=== PATIENT | female | born 1985 | race Caucasian/White ===

== ENCOUNTER 2022-03-04 08:07 | Outpatient (CLI) | payer OTHER, SELFPAY ==
[2022-03-04 12:30] LABS: Albumin* 4.3 g/dL (3.3-5.0); Chloride* 106 mmol/L (96-114); Potassium* 4.2 mmol/L (3.6-5.1); Sodium* 142 mmol/L (135-149)
[2022-03-04 12:32] LABS: Bilirubin Total* 1.1 mg/dL (0.1-1.5); Carbon Dioxide* 25 mmol/L (20-32); Creatinine* 0.8 mg/dL (0.5-1.5); Estimated Glomerular Filt Rate 97 ml/min
[2022-03-04 12:33] LABS: Alanine Aminotransferase* 27 U/L (4-35); Alkaline Phosphatase* 96 U/L (40-150); Aspartate Amino Transferase* 30 U/L (12-35); Blood Urea Nitrogen* 9 mg/dL (5-24); Glucose* 85 mg/dL (60-115)
[2022-03-04 13:35] LABS: Ferritin* 53.1 ng/mL (6.24-137.0)
[2022-03-04 13:49] LABS: Vitamin B12* 674 pg/mL (243-894)
== END 2022-03-04 08:08 | disposition home or self-care (01) ==
PROVIDERS: PCP Family Medicine; Visit Provider Family Medicine
DX: M79.604 Pain in right leg (principal); M79.605 Pain in left leg; R00.1 Bradycardia, unspecified; U07.1 COVID-19
CPT/HCPCS: 80053; 82607; 82728; 84443

== ENCOUNTER 2023-09-21 10:27 | Outpatient (CLI) | payer OTHER, SELFPAY | END 2023-09-21 10:28 | disposition home or self-care (01) | PROVIDERS: PCP Family Medicine; Visit Provider Family Medicine | DX: F41.9 Anxiety disorder, unspecified (principal); R00.2 Palpitations; M79.605 Pain in left leg; R07.89 Other chest pain | CPT/HCPCS: 80053; 84443 ==

== ENCOUNTER 2023-09-25 12:44 | Outpatient (CLI) | payer OTHER, SELFPAY | END 2023-09-25 12:45 | disposition home or self-care (01) | LOC: RAD 12:45 | PROVIDERS: PCP Family Medicine; Visit Provider Family Medicine | DX: R00.2 Palpitations (principal); I51.7 Cardiomegaly; Z87.74 Personal history of (corrected) congenital malformations of heart and circulatory system | CPT/HCPCS: 93306 ==

== ENCOUNTER 2023-10-10 10:35 | Outpatient (CLI) | payer OTHER, SELFPAY ==
--- OUTSIDE RECORDS SUMMARY | 2023-10-10 10:39 | XMS_ITS | Encounter Summary ---
Author Name Unknown Organization [facility] Address [address] [place] [address] Care Team Providers Care Singeing Torch Operator Name Role Phone Jaleel Christian MD Primary Care Provider [phone] Ricardo Ahn MD Unavailable Ruchi Blackman PA-C Unavailable [phone] Encounter Details Date Type Department Care Team (Late st Contact Info) Description 12/11/2019 Orders Only [facility] PH[facility] STANDARD [address] [place] [phone] Jose Manuel Strickland MD [address] [place] [address] Social History Tobacco Use Types Packs/Day Years Used Date Smoking Tobacco: Some Days Cigarettes Smokeless Tobacco: Never Alcohol Use Standard Drinks/Week Comments Not Currently 0 (1 standard drink = 0.6 oz pur e alcohol) Sex and Gender Information Value Date Recorded Sex Assigned at Not on file Gender Identity Not on file Sexual Orientation Not on file COVID-19 Exposure Response Date Recorded In the last month, have you been in contact with someone who was confirmed or suspected to have Coronavirus / COVID-19? No / Unsure 12/13/2019 5:20 AM CDT documented as of this encounter Plan of Treatment Not on file documented as of this encounter Visit Diagnoses Not on filedocumented in this encounter Care Teams Singeing Torch Operator Relationship Specialty Start Date End Date Jaleel Christian MD PCP - General Family Practice 10/21/19 Ricardo Ahn MD [address] [place] [address] Assigned Heart and Vascular Provider 04/17/20 09/04/21 Ruchi Blackman PA-C [address] [place] [address] Assigned Neuroscience Provider 09/09/20 09/19/20 documented as of this encounter
--- OUTSIDE RECORDS SUMMARY | 2023-10-10 10:39 | XMS_ITS | Encounter Summary ---
Author Name Unknown Organization [facility] Address [address] [place] [address]. [place] [address] Care Team Providers Care Cook Fry Name Role Phone Jaleel Christian MD Primary Care Provider [phone] Ricardo Ahn MD Unavailable [phone] Ruchi Blackman PA-C Unavailable [phone] Encounter Details Date Type Department Care Team (Late st Contact Info) Description 11/01/2019 [facility] [address] [place] [address] Lennie Lewis LPN Social History Tobacco Use Types Packs/Day Years Used Date Smoking Tobacco: Never Assessed Sex and Gender Information Value Date Recorded Sex Assigned at Not on file Gender Identity Not on file Sexual Orientation Not on file COVID-19 Exposure Response Date Recorded In the last month, have you been in contact with someone who was confirmed or suspected to have Coronavirus / COVID-19? No / Unsure 10/21/2019 1:21 PM CDT documented as of this encounter Plan of Treatment Not on file documented as of this encounter Visit Diagnoses Not on filedocumented in this encounter Care Teams Cook Fry Relationship Specialty Start Date End Date Jaleel Christian MD PCP - General Family Practice 10/21/19 Ricardo Ahn MD [address] [facility] [address] [place] [phone] Assigned Heart and Vascular Provider 04/17/20 09/04/21 Ruchi Blackman PA-C [address] [place] [address] Assigned Neuroscience Provider 09/09/20 09/19/20 documented as of this encounter
--- OUTSIDE RECORDS SUMMARY | 2023-10-10 10:39 | XMS_ITS | Encounter Summary ---
Author Name Unknown Organization [place] Address [address] [place] [address] Care Team Providers Care Bottom Loader Name Role Phone Jaleel Christian MD Primary Care Provider [phone] Ricardo Ahn MD Unavailable [phone] Ruchi Blackman PA-C Unavailable [phone] Encounter Details Date Type Department Care Team (Late st Contact Info) Description 03/11/[address] [facility] Medical Advice [facility] [id number] [place] [address] [address] [place] [address] Ricardo Ahn MD [address] [facility] [address] [place] [address] Social History Tobacco Use Types Packs/Day Years Used Date Smoking Tobacco: Some Days Cigarettes Smokeless Tobacco: Never Comments:a couple cigarettes daily Alcohol Use Standard Drinks/Week Comments Not Currently [...] have Coronavirus / COVID-19? No / Unsure 02/27/2020 1:34 PM CDT documented as of this encounter Plan of Treatment Not on file documented as of this encounter Visit Diagnoses Not on filedocumented in this encounter Care Teams Bottom Loader Relationship Specialty Start Date End Date Jaleel Christian MD PCP - General Family Practice 10/21/19 Ricardo Ahn MD [address] [place] [address] Assigned Heart and Vascular Provider 04/17/20 09/04/21 Ruchi Blackman PA-C [address] [place], [place] [address] Assigned Neuroscience Provider 09/09/20 09/19/20 documented as of this encounter
--- OUTSIDE RECORDS SUMMARY | 2023-10-10 10:39 | XMS_ITS | Clinical Summary ---
Author Name Unknown Organization [facility] Address [address] [place] [address] Care Team Providers Care Metal Grader Name Role Phone Jaleel Christian MD Primary Care Provider [phone] Allergies Active Allergy Reactions Criticality Noted Date Comments Ciprofloxacin Swelling High 12/02/2019 Sulfa Antibiotics Anaphylaxis High 10/18/2019 Medications Medication Sig Dispensed Refills Start Date End Date Status venlafaxine (EFFEXOR-XR) 75 MG 24 hr capsule Take 75 mg by mouth 2 times daily as needed (Patient taking differently than prescribed : RX states 75mg twice daily) Active LORazepam (ATIVAN) 0.5 MG tablet Take 0.5 mg by mouth daily as needed for anxiety Active methocarbamol (ROBAXIN) 750 MG tabletIndications:S /P patent foramen ovale closure Take 1 tablet (750 mg) by mouth 4 times daily as needed for muscle spasms 60 tablet 12/17/2019 Active Additional Information Patient not taking.Reported on 03/04/2020 oxyCODONE (ROXICODONE) 5 MG tabletIndications:S /P patent foramen ovale closure Take 1 tablet (5 mg) by mouth every 4 hours as needed for moderate to severe pain 50 tablet 12/17/2019 Active Additional Information Patient not taking.Reported on 03/04/2020 omeprazole (PRILOSEC) [address] capsule Take 20 mg by mouth daily Active Active Problems Problem Noted Date Diagnosed Date Fluid overload 12/17/2019 Anemia due to blood loss, acute 12/17/2019 S/P patent foramen ovale closure 12/13/2019 PFO (patent foramen ovale) 10/21/2019 Acute CVA (cerebrovascular accident) 10/18/2019 Pyelonephritis Depression Family History Medical History Relation Comments Coronary Artery Disease No family hx of Hyperlipidemia No family hx of Hypertension No family hx of Social History Tobacco Use Types Packs/Day Years Used Date Smoking Tobacco: Some Days Cigarettes Smokeless Tobacco: Never Comments:a couple cigarettes daily Alcohol Use Standard Drinks/Week Comments Not Currently 0 (1 standard drink = 0.6 oz pur e alcohol) Adolescent Education Answer Date Record ed Getting School Help Needed Not on file 03/18 Sex and Gender Information Value Date Recorded Sex Assigned at Not on file Gender Identity Not on file Sexual Orientation Not on file Last Filed Vital Signs Vital Sign Reading Time Taken Comments Blood Pressure 107/72 12/17/2019 11:13 AM CDT Pulse 92 12/17/2019 11:13 AM CDT Temperature 36.9 ??C (98.4 ??F) 12/17/2019 11:13 AM C DT Respiratory Rate 18 12/17/2019 11:13 AM CDT Oxygen Saturation 98% 12/17/2019 11:13 AM CDT Inhaled Oxygen Concentration - - Weight 70 kg (154 lb 5.2 oz) 12/17/2019 5:00 AM CDT Height 180.3 cm (5' 11) 11/20/2019 1:38 PM CDT Body Mass Index 21.52 11/20/2019 1:38 PM CDT Plan of Treatment Health Maintenance Due Date Last Done Comments ANNUAL REVIEW OF HM ORDERS 1984 YEARLY PREVENTIVE VISIT 1984 Pneumococcal Vaccine: Pediatrics (0 to 5 Years) and At-Risk Patients (6 to 64 Years) (1 of 2 - PCV) 02/05/1990 HIV SCREENING 02/05/1999 HEPATITIS C SCREENING 02/05/2002 DTAP/TDAP/TD IMMUNIZATION (1 - Tdap) 05/13/2017 05/12/2017 PAP 05/12/2020 05/12/2017, 05/12/2017 GLUCOSE 12/16/2022 12/17/2019, 11/25, 12/16/2019, Additional history exists COVID-19 Vaccine ( - 2022- season) 2023 INFLUENZA VACCINE (#1) 2023 9, 02/28/2016, 04/01/2011, Additional history exists PHQ-2 (once per calendar year) 2023 ADVANCE CARE PLANNING 12/12/2024 12/13/2019 HEPATITIS B IMMUNIZATION Completed 013, 09/12/2012, 08/15/2012 HPV IMMUNIZATION Aged Out No longer e ligible based on patient's age to complete this topic IPV IMMUNIZATION Aged Out No longer e ligible based on patient's age to complete this topic MENINGITIS IMMUNIZATION Aged Out No l onger eligible based on patient's age to complete this topic RSV MONOCLONAL ANTIBODY Aged Out No l onger eligible based on patient's age to complete this topic Procedures Procedure Name Priority Date/Time Associated Diagnosis Comments GLUCOSE BY METER Routine 12/17/2019 1:55 AM CDT PFO (patent foramen ovale) HCL PAP SMEAR Routine 11/18/1998 1:18 PM CDT Gynecologic Examination from Last 3 Months or Most Recently Relevant to Health Maintenance Results * Glucose by meter (12/17/2019 1:55 AM CDT) Glucose 88 70 - 99 mg/dL 12/17/2019 2:02 AM CDT POINT OF CARE TEST, GLUCOSE 12/17/2019 1:55 AM CDT 12/17/2019 2:02 AM CDT Jose Manuel Strickland MD [facility] POINT OF CARE TEST, GLUCOSE * PAP SMEAR (11/18/1998 1:18 PM CDT) Unlabelled DNR [facility] Biopsy Sent DNR [facility] Source VAG,CERV,E NDOCERV [facility] LMP POST [facility] PARA 3 [facility] 2 [facility] Clinical History DNR [facility] Therapy DNR [facility] Last Pap Diagnosis WITHIN NORMAL LIMITS [facility] PAP Date [id number] [facility] Specimen # DNR [facility] Tissue DNR [facility] Tissue Date DNR [facility] Statement of Adequacy [facility] Comment: SATISFACTORY FOR INTERPRETATION POST MENOPAUSAL PATIENT. ??NO ENDOCERVICAL CELLS SEEN. General Categorization DNR [facility] Descriptive Diagnosis [facility] Comment: WITHIN NORMAL LIMITS ATROPHIC CELL PATTERN Recommendations DNR [facility] DNR 114,,,,,, [facility] DNR DNR [facility] DNR DNR [facility] DNR DNR [facility] . [facility] Comment: ?PAP SMEARS ARE SUBJECT TO BOTH FALSE NEGATIVE AND FALSE ? POSITIVE RESULTS EVIDENCED BY DATA PUBLISHED IN THE ? MEDICAL LITERATURE. ??YOUR PATIENT'S RESULT SHOULD BE ? INTERPRETED IN THIS CONTEXT, TOGETHER WITH THE PATIENT'S ? HISTORY AND CLINICAL FINDINGS. TESTING LOCATION ? THIS TEST WAS PERFORMED AT [facility] ? [address] [facility]. [address] ? PHONE NUMBERS FOR CYTOLOGY INQUIRES, INCLUDING SLIDE REQUESTS ? EXT. [phone] ?? EXT. [phone] 11/16/1998 Lulvia Muniz MD LABORATORY Performing Organization Address City/State/[facility] Phone Number [facility] from Last 3 Months or Most Recently Relevant to Health Maintenance Advance Directives For more information, please contact: [phone] * Full Code (Latest Code Status on File) Date Activated Date Inactivated Comments 12/17/2019 10:31 AM Question Answer Comments Code status determined by: Discussion with patie nt/legal decision maker * Full Code Date Activated Date Inactivated Comments 12/13/2019 11:43 AM 12/17/2019 10:31 AM Question Answer Comments Code status determined by: Discussion with patie nt/legal decision maker * Full Code Date Activated Date Inactivated Comments 10/19/2019 2:50 PM 12/02/2019 9:27 AM Question Answer Comments Code status determined by: Discussion with patie nt/legal decision maker * Full Code Date Activated Date Inactivated Comments 10/18/2019 7:46 PM 10/19/2019 2:50 PM Question Answer Comments Code status determined by: Discussion with tai nt/legal decision maker Care Teams Metal Grader Relationship Specialty Start Date End Date Jaleel Christian MD PCP - General Family Practice 10/21/19
--- OUTSIDE RECORDS SUMMARY | 2023-10-10 10:39 | XMS_ITS | Encounter Summary ---
Author Name Unknown Organization [facility] Address [address] [place] [address]. [place] [address] Care Team Providers Care Residential Housekeeper Name Role Phone Jaleel Christian MD Primary Care Provider [phone] Ricardo Ahn MD Unavailable [phone] Ruchi Blackman PA-C Unavailable [phone] Encounter Details Date Type Department Care Team (Late st Contact Info) Description 02/18/2020 [facility] [address] [place] [address] Sarah Morrow APRN CNP NO INFO AVAILABLE 04/14/2022 Social History Tobacco Use Types Packs/Day Years Used Date Smoking Tobacco: Some Days Cigarettes Smokeless Tobacco: Never Alcohol Use Standard Drinks/Week Comments Not Currently 0 (1 standard drink = 0.6 oz pur e alcohol) Sex and Gender Information Value Date Recorded Sex Assigned at Not on file Gender Identity Not on file Sexual Orientation Not on file documented as of this encounter Plan of Treatment Not on file documented as of this encounter Visit Diagnoses Not on filedocumented in this encounter Care Teams Residential Housekeeper Relationship Specialty Start Date End Date Jaleel Christian MD PCP - General Family Practice 10/21/19 Ricardo Ahn MD [address] [facility] [address] [place] [phone] Assigned Heart and Vascular Provider 04/17/20 3 Ruchi Blackman PA-C [address] [place] [address] Assigned Neuroscience Provider 09/09/20 09/19/20 documented as of this encounter
--- OUTSIDE RECORDS SUMMARY | 2023-10-10 10:39 | XMS_ITS | Encounter Summary ---
Author Name Unknown Organization [facility] Address [address] [place] [address]. [place] [address] Care Team Providers Care Radar Mechanic Name Role Phone Jaleel Christian MD Primary Care Provider [phone] Ricardo Ahn MD Unavailable [phone] Ruchi Blackman PA-C Unavailable [phone] Encounter Details Date Type Department Care Team (Late st Contact Info) Description 11/14/2019 [facility] Medical Advice [facility] [address] [place] [address] Wesly Baez Social History Tobacco Use Types Packs/Day Years [...] have Coronavirus / COVID-19? No / Unsure 11/14/2019 12:02 PM CDT documented as of this encounter Plan of Treatment Not on file documented as of this encounter Visit Diagnoses Not on filedocumented in this encounter Care Teams Radar Mechanic Relationship Specialty Start Date End Date Jaleel Christian MD PCP - General Family Practice 10/21/19 Ricardo Ahn MD [address] [facility] [address] [place] [phone] Assigned Heart and Vascular Provider 04/17/20 09/04/21 Ruchi Blackman PA-C [address] [place] [address] Assigned Neuroscience Provider 09/09/20 09/19/20 documented as of this encounter
--- OUTSIDE RECORDS SUMMARY | 2023-10-10 10:39 | XMS_ITS | Encounter Summary ---
Author Name Unknown Organization [facility] Address [address] [place] [address] Care Team Providers Care Community Health Outreach Worker Name Role Phone Jaleel Christian MD Primary Care Provider [phone] Ricardo Ahn MD Unavailable Ruchi Blackman PA-C Unavailable [phone] Encounter Details Date Type Department Care Team (Late st Contact Info) Description 11/22/2019 Telephone [facility] Neurology [address] [facility] [address] [place] [address] Shine Vasquez MD [address] [place] [address] Social History Tobacco Use Types Packs/Day Years [...] have Coronavirus / COVID-19? No / Unsure 11/20/2019 1:36 PM CDT documented as of this encounter Miscellaneous Notes * Telephone Encounter - Mayra Ortez - 11/22/2019 9:24 AM CDT From: Ruchi Blackman PA-C Sent: 11/20/2019 ?? 5:31 PM CDT To: [facility] Subject: follow up needed ? Patient needs to follow up with us again in about 6 weeks. Thanks Genia documented in this encounter Plan of Treatment Not on file documented as of this encounter Visit Diagnoses Not on filedocumented in this encounter Care Teams Community Health Outreach Worker Relationship Specialty Start Date End Date Jaleel Christian MD PCP - General Family Practice 10/21/19 Ricardo Ahn MD [address] [place] [phone] Assigned Heart and Vascular Provider 04/17/20 09/04/21 Ruchi Blackman PA-C [address] [place], [place] [address] Assigned Neuroscience Provider 09/09/20 09/19/20 documented as of this encounter
--- OUTSIDE RECORDS SUMMARY | 2023-10-10 10:39 | XMS_ITS | Encounter Summary ---
Author Name Unknown Organization [facility] Address [address] [place] [address] Care Team Providers Care Case Loader Operator Name Role Phone Jaleel Christian MD Primary Care Provider [phone] Ricardo Ahn MD Unavailable Ruchi Blackman PA-C Unavailable Reason for Referral * Diagnostic Imaging XR (Routine) - Closed Specialty Diagnoses / Procedures Referred By Yovani t Referred To Contact Radiology. Diagnoses PFO (patent foramen ovale) Procedures XR Chest 2 Views Jose Manuel Strickland MD [address] [place] [address] [address]ray [address] [place] [address] Referral ID Status Reason Start Date Expiration Date Visits Re quested Visits Authorized [id number] Closed 12/10/2019 12/09/2020 1 1 Encounter Details Date Type Department Care Team (Late st Contact Info) Description 12/10/2019 Orders Only [facility] PHYS STANDARD [address] [place] [address] Jose Manuel Strickland MD [address] [place] [phone] PFO (patent foramen ovale) (Primary Dx) Social History Tobacco Use Types Packs/Day Years [...] on file documented as of this encounter Results * ABO/Rh type and screen (12/11/2019 1:03 PM CDT) Units Ordered 4 12/13/2019 5:50 AM CDT [facility] ABO A 12/11/2019 1:56 PM CDT [facility] RH(D) Neg [facility] Antibody Screen Neg 12/11/2019 1:56 PM CDT [facility] Test Valid Only At [facility] 12/11/2019 1:10 PM CDT [facility] Specimen Expires 12/14/2019 12/11/2019 1:10 PM CDT [facility] Crossmatch Red Blood Cells 12/13/2019 5:50 AM CDT [facility] Blood specimen (specimen) 12/11/2019 1:03 PM CDT 12/11/2019 1:04 PM CDT Jose Manuel Strickland MD LAB - BLOOD BA NK TEST ORDER [facility] [address] [place] [address], [facility] [phone] * A1C FUTURE anytime (12/11/2019 1:03 PM CDT) Hemoglobin A1C 5.2 0 - 5.6 % 12/11/2019 1:27 PM CDT [facility] Comment: Normal <5.7% Prediabetes 5.7-6.4% ??Diabetes 6.5% or higher - adopted from ADA consensus guidelines. Blood specimen (specimen) 12/11/2019 1:03 PM CDT 12/11/2019 1:04 PM CDT Jose Manuel Strickland MD LAB - BLOOD OR DERABLES Performing Organization Address City/[facility]/ZIP Co de Phone Number [facility] [address] [place] [address], [facility] [phone] * CBC with platelets FUTURE anytime (12/11/2019 1:03 PM CDT) WBC 6.9 4.0 - 11.0 10e9/L 12/11/2019 1:14 PM CDT [facility] RBC Count 4.63 3.8 - 5.2 10e12/L 12/11/2019 1:14 PM CDT [facility] Hemoglobin 14.3 11.7 - 15.7 g/dL 12/11/2019 1:14 PM CDT [facility] Hematocrit 42.1 35.0 - 47.0 % 12/11/2019 1:14 PM CDT [facility] MCV 91 78 - 100 fl 12/11/2019 1:14 PM CDT [facility] MCH 30.9 26.5 - 33.0 pg 12/11/2019 1:14 PM CDT [facility] MCHC 34.0 31.5 - 36.5 g/dL 12/11/2019 1:14 PM CDT [facility] RDW 12.7 10.0 - 15.0 % 12/11/2019 1:14 PM CDT [facility] Platelet Count 266 150 - 450 10e9/L 12/11/2019 1:14 PM CDT [facility] Blood specimen (specimen) 12/11/2019 1:03 PM CDT 12/11/2019 1:04 PM CDT Jose Manuel Strickland MD LAB - BLOOD OR DERABLES [facility] [address] [place] [address], [facility] [phone] * (ABNORMAL) Comprehensive metabolic panel FUTURE anytime (12/11/2019 1:03 PM CDT) Sodium 138 133 - 144 mmol/L 12/11/2019 1:22 PM [facility] Potassium 3.2(L) 3.4 - 5.3 mmol/L 12/11/2019 1:22 PM [facility] Chloride 109 94 - 109 mmol/L 12/11/2019 1:22 PM [facility] Carbon Dioxide 25 20 - 32 mmol/L 12/11/2019 1:31 PM [facility] Anion Gap 4 3 - 14 mmol/L 12/11/2019 1:31 PM [facility] Glucose 79 70 - 99 mg/dL 12/11/2019 1:31 PM [facility] Urea Nitrogen 10 7 - 30 mg/dL 12/11/2019 1:31 PM [facility] Creatinine 0.79 0.52 - 1.04 mg/dL 12/11/2019 1:31 PM [facility] GFR Estimate >90 >60 mL/min/{1. 73_m2} 12/11/2019 1:31 PM [facility] Comment: Non GFR Calc Starting 06/12/2018, serum creatinine based estimated GFR (eGFR) will be calculated using the Chronic Kidney Disease Epidemiology Collaboration (CKD-EPI) equation. GFR Estimate If Black >90 >60 mL/min/{1. 73_m2} 12/11/2019 1:31 PM [facility] Comment: GFR Calc Starting 06/12/2018, serum creatinine based estimated GFR (eGFR) will be calculated using the Chronic Kidney Disease Epidemiology Collaboration (CKD-EPI) equation. Calcium 8.7 8.5 - 10.1 mg/dL 12/11/2019 1:31 PM [facility] Bilirubin Total 0.4 0.2 - 1.3 mg/dL 12/11/2019 1:31 PM [facility] Albumin 3.9 3.4 - 5.0 g/dL 12/11/2019 1:31 PM CDT [facility] Protein Total 7.5 6.8 - 8.8 g/dL 12/11/2019 1:31 PM CDT [facility] Alkaline Phosphatase 80 40 - 150 U/L 12/11/2019 1:31 PM CDT [facility] ALT 22 0 - 50 U/L 12/11/2019 1:31 PM CDT [facility] AST 16 0 - 45 U/L 12/11/2019 1:31 PM CDT [facility] Blood specimen (specimen) 12/11/2019 1:03 PM CDT 12/11/2019 1:04 PM CDT Jose Manuel Strickland MD LAB - BLOOD OR DERABLES [facility] [address] [place] [address], [facility] [phone] * XR Chest 2 Views (12/11/2019 12:58 PM CDT) Anatomical Region Laterality Modality Chest Digital Radiogra phy Impressions 12/11/2019 2:06 PM CDT IMPRESSION: PA and lateral views of the chest. Lungs are clear. Heart is normal in size. No effusions are evident. No pneumothorax. JOSHUA CHRISTIANSON MD Narrative 12/11/2019 2:06 PM CDT CHEST TWO VIEWS December 11, 2019 12:58 PM HISTORY: PFO (patent foramen ovale). COMPARISON: None. Procedure Note Joshua Christianson MD - 12/11/2019 CHEST TWO VIEWS December 11, 2019 12:58 PM HISTORY: PFO (patent foramen ovale). COMPARISON: None. IMPRESSION: PA and lateral views of the chest. Lungs are clear. Heart is normal in size. No effusions are evident. No pneumothorax. JOSHUA CHRISTIANSON MD Jose Manuel Strickland MD IMG DIAGNOSTIC IMAGING ORDERABLES documented in this encounter Visit Diagnoses Diagnosis PFO (patent foramen ovale)- Primary Ostium secundum type atrial septal defect PFO (patent foramen ovale) Ostium secundum type atrial septal defect documented in this encounter Care Teams Case Loader Operator Relationship Specialty Start Date End Date Jaleel Christian MD PCP - General Family Practice 10/21/19 Ricardo Ahn MD [address] [facility] [address] [place] [address] Assigned Heart and Vascular Provider 04/17/20 09/04/21 Ruchi Blackman PA-C [address] [place] [address] Assigned Neuroscience Provider 09/09/20 09/19/20 documented as of this encounter
--- OUTSIDE RECORDS SUMMARY | 2023-10-10 10:39 | XMS_ITS | Referral Summary ---
Author Name Unknown Organization [facility] Address [address] [place] [address] Care Team Providers Care Door To Door Sales Representative Name Role Phone Jaleel Christian MD Primary Care Provider [phone] Allergies Active Allergy Reactions Criticality Noted Date [...] Acute CVA (cerebrovascular accident) 10/18/2019 Pyelonephritis Depression Social History Tobacco Use Types Packs/Day Years [...] 11/20/2019 1:38 PM CDT Plan of Treatment Not on file Procedures Procedure Name Priority Date/Time Associated Diagnosis [...] 2:02 AM CDT Jose Manuel Strickland MD LAB - [facility] [place] P OCT POINT OF CARE TEST, GLUCOSE * PAP SMEAR (11/18/1998 1:18 PM CDT) Unlabelled DNR [facility] Biopsy Sent DNR [facility] Source VAG,CERV,E NDOCERV [facility] LMP POST [facility] PARA 3 [facility] 2 [facility] Clinical History DNR [facility] Therapy DNR [facility] Last Pap Diagnosis WITHIN NORMAL LIMITS [facility] PAP Date [id number] [facility] Specimen # DNR [facility] Tissue DNR [facility] Tissue Date DNR [facility] Statement of Adequacy [facility] Comment: SATISFACTORY FOR INTERPRETATION POST MENOPAUSAL PATIENT. ??NO ENDOCERVICAL CELLS SEEN. General Categorization DNR [facility] Descriptive Diagnosis [facility] Comment: WITHIN NORMAL LIMITS ATROPHIC CELL PATTERN Recommendations DNR [facility] DNR 114,,,,,, [facility] DNR DNR [facility] DNR DNR [facility] DNR DNR [facility] . [facility] Comment: ?PAP SMEARS ARE SUBJECT TO BOTH FALSE NEGATIVE AND FALSE ? POSITIVE RESULTS EVIDENCED BY DATA PUBLISHED IN THE ? MEDICAL LITERATURE. ??YOUR PATIENT'S RESULT SHOULD BE ? INTERPRETED IN THIS CONTEXT, TOGETHER WITH THE PATIENT'S ? HISTORY AND CLINICAL FINDINGS. TESTING LOCATION ? THIS TEST WAS PERFORMED AT [facility] ? [address] [facility]. [id number] ? PHONE NUMBERS FOR CYTOLOGY INQUIRES, INCLUDING SLIDE REQUESTS ? EXT. 0137 ?? EXT. 1326 11/16/1998 Lluvia Muniz MD LABORATORY Performing Organization Address City/State/[facility] Co de Phone Number [facility] from Last 3 Months or Most Recently Relevant to Health Maintenance Advance Directives For more information, please contact: [phone] * Full Code (Latest Code Status on [...] by: Discussion with patie nt/legal decision maker Care Teams Door To Door Sales Representative Relationship Specialty Start Date End Date Jaleel Christian MD PCP - General Family Practice 10/21/19
--- OUTSIDE RECORDS SUMMARY | 2023-10-10 10:39 | XMS_ITS | Encounter Summary ---
Author Name Unknown Organization [facility] Address [address] [place] [address] Care Team Providers Care Commercial Floor Covering Installer Name Role Phone Jaleel Christian MD Primary Care Provider [phone] Ricardo Ahn MD Unavailable [phone] Ruchi Blackman PA-C Unavailable [phone] Encounter Details Date Type Department Care Team (Late st Contact Info) Description 12/10/2019 Orders Only [facility] [address] [place] [phone] Jose Manuel Strickland MD [address] [place] [address] Social History Tobacco Use Types Packs/Day Years [...] on filedocumented in this encounter Care Teams Commercial Floor Covering Installer Relationship Specialty Start Date End Date Jaleel Christian MD PCP - General Family Practice 10/21/19 Ricardo Ahn MD [address] [place] [address] Assigned Heart and Vascular Provider 04/17/20 09/04/21 Ruchi Blackman PA-C [address] [place] [address] Assigned Neuroscience Provider 09/09/20 09/19/20 documented as of this encounter
[2023-10-10 11:44] VITALS: BP 108/64; PULSE 93; RESP 16
--- NOTE | 2023-10-10 12:05 | W.PM.STED ---
Stress Test Note Date Date of test: 10/10/23 Providers Primary care provider: Jaleel Christian Stress test physician: Pawel Garcia Stress Test Note Stress test ordered: Exercise Stress Test Indication for test: Palpitations Stress test medicine: None Results discussion: Patient is a very nice lady presents for the above test after review of the cardiac stress test medical history, discussion with her over the risks benefits and side effects including non diagnosis she would like to proceed. Pretest EKG shows no acute ST wave changes, ventricular rate is 68, blood pressure 105/73. Standard Eric protocol is employed over a time course of 10 minutes, she achieved a metabolic with an 11.5 Mets with a maximum heart rate of 165, maximum blood pressure 124/178, no specific ST wave changes suggestive of ischemia, the computer did have a little bit a hard time picking her up, at certain times but on the tracing that can see there is no acute changes I do not see any evidence of any PACs or PACs also. Conditioning was felt to be excellent Impression: Negative electrographic tracing of stress test Follow up suggested: Patient will be discharged from this facility, she is doing well. No complaints are noted. Further testing is needed, suggestion of a stress echo.
== END 2023-10-10 10:36 | disposition home or self-care (01) ==
LOC: STRESS 10:35
PROVIDERS: PCP Family Medicine; Visit Provider Family Medicine
DX: R00.2 Palpitations (principal)
CPT/HCPCS: 93016; 93017

== ENCOUNTER 2024-01-23 10:14 | Outpatient (CLI) | payer OTHER, SELFPAY ==
--- OUTSIDE RECORDS SUMMARY | 2024-01-23 10:46 | XMS_ITS | Referral Summary ---
Author Organization [facility] Address [address] [place] [address] Care Team Providers Care Coal Handling Supervisor Name Role Phone Jaleel Christian MD Primary Care Provider [phone] Allergies Active Allergy Reactions Criticality Noted Date [...] CDT Plan of Treatment Not on file Advance Directives For more information, please contact: [phone] * Full Code (Latest Code Status on File) Date Activated Date Inactivated Comments 12/17/2019 10:31 AM Question Answer Comments Code status determined by: Discussion with tai nt/legal decision maker * Full Code Date [...] with patie nt/legal decision maker Care Teams Coal Handling Supervisor Relationship Specialty Start Date End Date Jaleel Christina MD PCP - General Family Practice 10/21/19
--- OUTSIDE RECORDS SUMMARY | 2024-01-23 10:46 | XMS_ITS | Encounter Summary ---
Author Organization [facility] Address [address] [place] [address] Care Team Providers Care Greens Or Grounds Superintendent Name Role Phone Jaleel Christian MD Primary Care Provider [phone] Ricardo Ahn MD Unavailable [phone] Ruchi Blackman PA-C Unavailable Reason for Referral * Diagnostic Imaging XR (Routine) - Closed Specialty Diagnoses / Procedures Referred By Yovani caba Referred To Contact Radiology. Diagnoses PFO (patent foramen ovale) Procedures XR Chest 2 Views Jose Manuel Strickland MD [address] [place] [address] Xray [address] [place] [id number] Referral ID Status Reason Start Date Expiration Date Visits Re quested Visits Authorized [id number] Closed 12/10/2019 12/09/2020 1 1 Encounter Details Date Type Department Care Team (Late st Contact Info) Description 12/10/2019 Orders Only [facility] PH[facility] [address] [place] [address] Jose Manuel Strickland MD [address] [place] [id number] PFO (patent foramen ovale) (Primary Dx) Social [...] Units Ordered 4 12/13/2019 5:50 AM CDT [facility] ABO A 12/11/2019 1:56 PM CDT [facility] RH(D) Neg [facility] Antibody Screen Neg 12/11/2019 1:56 PM CDT [facility] Test Valid Only At [facility] 12/11/2019 1:10 PM CDT [facility] Specimen Expires 12/14/2019 12/11/2019 1:10 PM CDT [facility] Crossmatch Red Blood Cells 12/13/2019 5:50 AM CDT [facility] Blood specimen (specimen) 12/11/2019 1:03 PM CDT 12/11/2019 1:04 PM CDT Jose Manuel Strickland MD LAB - BLOOD BA NK TEST ORDER [facility] [address] [place] [address], [facility] [phone] * A1C FUTURE anytime (12/11/2019 1:03 PM CDT) Hemoglobin A1C 5.2 0 - 5.6 % 12/11/2019 1:27 PM CDT [facility] Comment: Normal <5.7% Prediabetes 5.7-6.4% ??Diabetes 6.5% or higher - adopted from ADA consensus guidelines. Blood specimen (specimen) 12/11/2019 1:03 PM CDT 12/11/2019 1:04 PM CDT Jose Manuel Strickland MD LAB - BLOOD OR DERABLES [facility] [address] [place] [address], [facility] [phone] * CBC with platelets FUTURE anytime (12/11/2019 1:03 PM CDT) WBC 6.9 4.0 - 11.0 10e9/L 12/11/2019 1:14 PM CDT [facility] RBC Count 4.63 3.8 - 5.2 10e12/L 12/11/2019 1:14 PM CDT [facility] Hemoglobin 14.3 11.7 - 15.7 g/dL 12/11/2019 1:14 PM CDT [facility] Hematocrit 42.1 35.0 - 47.0 % 12/11/2019 1:14 PM CDT [facility] MCV 91 78 - 100 fl 12/11/2019 1:14 PM CDT [facility] MCH 30.9 26.5 - 33.0 pg 12/11/2019 1:14 PM CDT [facility] MCHC 34.0 31.5 - 36.5 g/dL 12/11/2019 1:14 PM CDT [facility] RDW 12.7 10.0 - 15.0 % 12/11/2019 1:14 PM CDT [facility] Platelet Count 266 150 - 450 10e9/L 12/11/2019 1:14 PM CDT [facility] Blood specimen (specimen) 12/11/2019 1:03 PM CDT 12/11/2019 1:04 PM CDT Jose Manuel Strickland MD LAB - BLOOD OR DERABLES [facility] [address] [address], [facility] [phone] * (ABNORMAL) Comprehensive metabolic panel FUTURE anytime (12/11/2019 1:03 PM CDT) Sodium 138 133 - 144 mmol/L 12/11/2019 1:22 PM [facility] Potassium 3.2(L) 3.4 - 5.3 mmol/L 12/11/2019 1:22 PM [facility] Chloride 109 94 - 109 mmol/L 12/11/2019 1:22 PM [facility] Carbon Dioxide 25 20 - 32 mmol/L 12/11/2019 1:31 PM [facility] Anion Gap 4 3 - 14 mmol/L 12/11/2019 1:31 PM [facility] Glucose 79 70 - 99 mg/dL 12/11/2019 1:31 PM [facility] Urea Nitrogen 10 7 - 30 mg/dL 12/11/2019 1:31 PM [facility] Creatinine 0.79 0.52 - 1.04 mg/dL 12/11/2019 1:31 PM [facility] GFR Estimate >90 >60 mL/min/{1. 73_m2} 12/11/2019 1:31 PM [facility] Comment: Non GFR Calc Starting 06/12/2018, serum creatinine based estimated GFR (eGFR) will be calculated using the Chronic Kidney Disease Epidemiology Collaboration (CKD-EPI) equation. GFR Estimate If Black >90 >60 mL/min/{1. 73_m2} 12/11/2019 1:31 PM [facility] Comment: GFR Calc Starting 06/12/2018, serum creatinine based estimated GFR (eGFR) will be calculated using the Chronic Kidney Disease Epidemiology Collaboration (CKD-EPI) equation. Calcium 8.7 8.5 - 10.1 mg/dL 12/11/2019 1:31 PM [facility] Bilirubin Total 0.4 0.2 - 1.3 mg/dL 12/11/2019 1:31 PM [facility] Albumin 3.9 3.4 - 5.0 g/dL 12/11/2019 1:31 PM CDT [facility] Protein Total 7.5 6.8 - 8.8 g/dL 12/11/2019 1:31 PM CDT [facility] Alkaline Phosphatase 80 40 - 150 U/L 12/11/2019 1:31 PM CDT [facility] ALT 22 0 - 50 U/L 12/11/2019 1:31 PM CDT [facility] AST 16 0 - 45 U/L 12/11/2019 1:31 PM CDT [facility] Blood specimen (specimen) 12/11/2019 1:03 PM CDT 12/11/2019 1:04 PM CDT Jose Manuel Strickland MD LAB - BLOOD OR DERABLES [facility] [address] [place] [address], [facility] [phone] * XR Chest 2 Views (12/11/2019 12:58 [...] defect documented in this encounter Care Teams Greens Or Grounds Superintendent Relationship Specialty Start Date End Date Jaleel Christian MD PCP - General Family Practice 10/21/19 Ricardo Ahn MD [address] [place] [address] Assigned Heart and Vascular Provider 04/17/20 09/04/21 Ruchi Blackman PA-C [address] [place] [address] Assigned Neuroscience Provider 09/09/20 09/19/20 documented as of this encounter
--- OUTSIDE RECORDS SUMMARY | 2024-01-23 10:46 | XMS_ITS | Clinical Summary ---
Author Organization [facility] Address [address] [place] [address] Care Team Providers Care Fugitive Detective Name Role Phone Jaleel Christian MD Primary Care Provider [phone] Allergies Active Allergy Reactions Criticality Noted Date [...] Advance Directives For more information, please contact: [phone] * Full Code (Latest Code Status on File) Date Activated Date Inactivated Comments 12/17/2019 10:31 AM Question Answer Comments Code status determined by: Discussion with tai clayton/legal decision maker * Full Code Date Activated [...] with patie nt/legal decision maker Care Teams Fugitive Detective Relationship Specialty Start Date End Date Jaleel Christian MD PCP - General Family Practice 10/21/19
--- OUTSIDE RECORDS SUMMARY | 2024-01-23 10:46 | XMS_ITS | Encounter Summary ---
Author Organization [facility] Address [address] [place] [address] Care Team Providers Care Baked Goods Stock Clerk Name Role Phone Jaleel Christian MD Primary Care Provider [phone] Ricardo Ahn MD Unavailable [phone] Ruchi Blackman PA-C Unavailable [phone] Encounter Details Date Type Department Care Team (Late st Contact Info) Description 12/10/2019 Orders Only [facility] PH[facility]ANDARD [address] [place] [phone] Jose Manuel Strickland MD [address] [place] [address] Social History Tobacco Use Types Packs/Day Years [...] on filedocumented in this encounter Care Teams Baked Goods Stock Clerk Relationship Specialty Start Date End Date Jaleel Christian MD PCP - General Family Practice 10/21/19 Ricardo Ahn MD [address] [place] [address] Assigned Heart and Vascular Provider 04/17/20 09/04/21 Ruchi Blackman PA-C [address] [place] [address] Assigned Neuroscience Provider 09/09/20 09/19/20 documented as of this encounter
--- OUTSIDE RECORDS SUMMARY | 2024-01-23 10:46 | XMS_ITS | Encounter Summary ---
Author Organization [facility] Address [address] [place] [address] Care Team Providers Care Film Projector Operator Name Role Phone Jaleel Christian MD Primary Care Provider [phone] Ricardo Ahn MD Unavailable [phone] Ruchi Blackman PA-C Unavailable [phone] Encounter Details Date Type Department Care Team (Late st Contact Info) Description 12/11/2019 Orders Only [facility] PH[facility]ANDARD [address] [place] [phone] Jose Manuel Strickland MD [address] [place] [address] Social History Tobacco Use Types Packs/Day Years [...] on filedocumented in this encounter Care Teams Film Projector Operator Relationship Specialty Start Date End Date Jaleel Christian MD PCP - General Family Practice 10/21/19 Ricardo Ahn MD [address] [place] [address] Assigned Heart and Vascular Provider 04/17/20 09/04/21 Ruchi Blackman PA-C [address] [place] [address] Assigned Neuroscience Provider 09/09/20 09/19/20 documented as of this encounter
--- OUTSIDE RECORDS SUMMARY | 2024-01-23 10:46 | XMS_ITS | Encounter Summary ---
Author Organization [facility] Address [address] [place] [address] Care Team Providers Care International Marketing Specialist Name Role Phone Jaleel Christian MD Primary Care Provider [phone] Ricardo Ahn MD Unavailable Ruchi Blackman PA-C Unavailable [phone] Encounter Details Date Type Department Care Team (Late st Contact Info) Description 02/18/2020 [facility] [address] [place] [address] Sarah Morrow APRN CNP NO [...] on filedocumented in this encounter Care Teams International Marketing Specialist Relationship Specialty Start Date End Date Jaleel Christian MD PCP - General Family Practice 10/21/19 Ricardo Ahn MD [address] [facility] [address] [place] [phone] Assigned Heart and Vascular Provider 04/17/20 3 Ruchi Blackman PA-C [address] [place] [address] Assigned Neuroscience Provider 09/09/20 09/19/20 documented as of this encounter
--- OUTSIDE RECORDS SUMMARY | 2024-01-23 10:46 | XMS_ITS | Encounter Summary ---
Author Organization [facility] Address [address] [address] Phone Care Team Providers Care Kindergarten Teacher Name Role Phone Jaleel Christian MD Primary Care Provider Unavail able Reason for Visit * Reason Comments [place] Removal Encounter Details Date Type Department Care Team (Late st Contact Info) Description 12/31/2023 10:24 AM CDT - 12/31/2023 10:45 AM CDT Emergency [facility] EMERGENCY DEPARTMENT [address] [place] [phone] Vanessa Gabriel MD [address] [place], [place] [phone] Fish hook in finger (Primary Dx) Discharge Disposition: Home and/or Self Care Social History Tobacco Use Types Packs/Day Years Used Date Smoking Tobacco: Never Assessed EH IP Custom IPV Answer Date Recorded Do you feel UNSAFE in any of your personal relationships with your family members or any other acquaintances? No 2023 Sex and Gender Information Value Date Recorded Sex Assigned at Not on file Gender Identity Not on file Sexual Orientation Not on file documented as of this encounter Last Filed Vital Signs Vital Sign Reading Time Taken Comments Blood Pressure 104/70 12/31/2023 10:21 AM CDT Pulse 60 12/31/2023 10:21 AM CDT Temperature 36.1 ??C (97 ??F) 12/31/2023 10:21 AM CDT Respiratory Rate 16 12/31/2023 10:21 AM CDT Oxygen Saturation 100% 12/31/2023 10:21 AM CDT Inhaled Oxygen Concentration - - Weight 68 kg (150 lb) 12/31/2023 10:21 AM CDT Height 177.8 cm (5' 10) 12/31/2023 10:21 AM CDT Body Mass Index 21.52 12/31/2023 10:21 AM CDT documented in this encounter Functional Status Functional Status Response Date of Assess ment Patient's Vision Adequate to Safely Complete Daily Activities Yes 12/31/2023 Patient's Memory Adequate to Safely Complete Daily Activities Yes 12/31/2023 Cognitive Status Response Date of Assessm ent Patient's Judgment Adequate to Safely Complete Daily Activities Yes 12/31/2023 documented as of this encounter Discharge Instructions * Attachments The following attachments cannot be sent through Care Everywhere. * [place] Removed (Gambian) documented in this encounter Medications at Time of Discharge Medication Sig Dispensed Refills Start Date End Date pregabalin (Lyrica) 100 MG capsule Take 100 mg by mouth three times a day. DULoxetine (Cymbalta) 30 MG delayed release capsule Take 30 mg by mouth one time a day. Do not crush. documented as of this encounter Discharge Disposition Disposition Code Departure Means Destination Comment s Home and/or Self Jail documented in this encounter ED Notes * Vanessa Gabriel MD - 12/31/2023 10:42 AM CDTAssociated Order(s): Foreign Body Removal Post-Procedure Diagnose(s): Fish hook in finger ED PROVIDER NOTE Name: Andrea Webster Date of : 1985 SUBJECTIVE: Chief Complaint: Chief Complaint Patient presents with [place] Removal History of Present Illness: Andrea Webster is a very pleasant 38 year old female who presents with a fish hook in her right middle finger. Was fishing on [employer] and accidentally herself with fishing lure. Tried to get it out herself but unsuccessful. No other injury She is right hand dominant. 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 Skin: Positive for wound. : MEDICAL, SOCIAL, FAMILY HISTORY: I reviewed with patient past medical history, social history, surgical history and family history as listed below. Active Ambulatory Problems Diagnosis Date Noted No Active Ambulatory Problems Resolved Ambulatory Problems Diagnosis Date Noted No Resolved Ambulatory Problems No Additional Past Medical History No past medical history on file. No past surgical history on file. Prior to Admission Medications Prescriptions Last Dose Informant Patient Reported? Taking? DULoxetine (Cymbalta) 30 MG delayed release capsule Yes Yes Sig: Take 30 mg by mouth one time a day. Do not crush. pregabalin (Lyrica) 100 MG capsule Yes Yes Sig: Take 100 mg by mouth three times a day. Facility-Administered Medications: None Allergies/Sensitivities: Allergies Allergen Reactions Ciprofloxacin Swelling Sulfa Drugs Unknown and Anaphylaxis Primary Care Provider: Jaleel Christian MD Code Status: No Order OBJECTIVE: Vital Signs: Blood pressure 104/70, pulse 60, temperature 97 ??F (36.1 ??C), temperature source Temporal, resp. rate 16, height 1.778 m (5' 10), weight 68 kg (150 lb), SpO2 100%. Physical Exam: Vital signs: Reviewed as above Constitutional: Well appearing. No acute distress. Head: Atraumatic Eyes: Pupils equal round and reactive to light. Conjunctiva pink Nose: no nasal drainage Mouth/throat: moist mucous membranes Neck: Supple Chest/cardiac: Normal rate Lungs: Non-labored Abdomen: Skin: there is a 3 hook fishing lure in right middle finger Mental status/neurologic:motor and sensation in tact distal to injury Data: All laboratory data, imaging, and EKGs were interpreted independently. Labs Reviewed - No data to display Imaging Results None Procedure: Foreign Body Removal Date/Time: 12/31/2023 10:50 AM Performed by: Vanessa Gabriel MD Authorized by: Vanessa Gabriel MD Consent: Consent obtained: Verbal Consent given by: Patient Risks discussed: Infection, pain and bleeding [place] protocol: Patient identity confirmed: Verbally with patient Location: Location: Finger Finger location: R middle finger Anesthesia: Anesthesia method: Local infiltration Local anesthetic: Lidocaine 1% w/o epi Procedure details: Removal mechanism: Hemostat Intact foreign body removal: yes Post-procedure details: Neurovascular status: intact Confirmation: No additional foreign bodies on visualization Skin closure: None Dressing: Antibiotic ointment and adhesive bandage Procedure completion: Tolerated well, no immediate complications ED COURSE, MEDICAL DECISION MAKING: Tetanus updated and fishook successfully removed. Patient tolerated procedure well. Return precautions including signs or symptoms of infection discussed. Final Clinical Impression: (S69.90XA) Fish hook in finger (primary encounter diagnosis) Vanessa Gabriel MD 12/31/23 10:42 AM Vanessa Gabriel MD 12/31/23 1052 * Faiza Davis RN - 12/31/2023 10:19 AM CDT Patient presents with complaints of fishhook in right hand ring finger by private car from Home accompanied by significant other. Patients symptoms include: [place] to right hand 1 hr prior to arrival documented in this encounter Plan of Treatment Not on file documented as of this encounter Procedures Procedure Name Priority Date/Time Associated Diagnosis Comments FOREIGN BODY REMOVAL - EMBEDDED 12/31/2023 10:50 AM CDT Fish hook in finger documented in this encounter Results * Foreign Body Removal (12/31/2023 10:50 AM CDT) Narrative Vanessa Gabriel MD - 12/31/2023 10:50 AM CDT Vanessa Gabriel MD ? 12/31/2023 10:52 AM Foreign Body Removal Date/Time: 12/31/2023 10:50 AM Performed by: Vanessa Gabriel MD Authorized by: Vanessa Gabriel MD ?? Consent: ??Consent obtained: ??Verbal ??Consent given by: ??Patient ??Risks discussed: ??Infection, pain and bleeding [place] protocol: ??Patient identity confirmed: ??Verbally with patient Location: ??Location: ??Finger ??Finger location: ??R middle finger Anesthesia: ??Anesthesia method: ??Local infiltration ??Local anesthetic: ??Lidocaine 1% w/o epi Procedure details: ??Removal mechanism: ??Hemostat ??Intact foreign body removal: yes ?? Post-procedure details: ??Neurovascular status: intact ?Confirmation: ??No additional foreign bodies on visualization ??Skin closure: ??None ??Dressing: ??Antibiotic ointment and adhesive bandage ??Procedure completion: ??Tolerated well, no immediate complications Vanessa Gabriel MD PROCEDURE/MINOR ASHISH ORDERABLES documented in this encounter Visit Diagnoses Diagnosis Fish hook in finger- Primary documented in this encounter Historical Medications * This list may reflect changes made after this encounter. Medication Sig Dispensed Refills Start Date End Date DULoxetine (Cymbalta) 30 MG delayed release capsule Take 30 mg by mouth one time a day. Do not crush. pregabalin (Lyrica) 100 MG capsule Take 100 mg by mouth three times a day. added in this encounter Care Teams Kindergarten Teacher Relationship Specialty Start Date End Date Jaleel Christian MD PCP - General Family Medicine 12/31/23 documented as of this encounter
--- OUTSIDE RECORDS SUMMARY | 2024-01-23 10:46 | XMS_ITS | Clinical Summary ---
Author Organization [facility] Address [address] [address] Phone Care Team Providers Care Restaurant Manager Name Role Phone Jaleel Christian MD Primary Care Provider Unavail able Allergies Active Allergy Reactions Criticality Noted Date Comments Ciprofloxacin Swelling High 12/02/2019 Sulfa Drugs Unknown,Anaphylaxis High 07/08/2009 Medications Medication Sig Dispensed Refills Start Date End Date Status pregabalin (Lyrica) 100 MG capsule Take 100 mg by mouth three times a day. Active DULoxetine (Cymbalta) 30 MG delayed release capsule Take 30 mg by mouth one time a day. Do not crush. Active Encounters Date Type Department Care Team Description 12/31/2023 10:24 AM CDT - 12/31/2023 10:45 AM CDT Emergency [facility] EMERGENCY DEPARTMENT [address] [place] [phone] Vanessa Gabriel MD Fish hook in finger (Primary Dx) Discharge Disposition: Home and/or Self Care 12/31/2023 Travel from Last 3 Months Immunizations Name Administration Dates Next Due Tdap (7 years and older) 12/31/2023 Social History Tobacco Use Types Packs/Day Years [...] Mass Index 21.52 12/31/2023 10:21 AM CDT Plan of Treatment Not on file Procedures Procedure Name Priority Date/Time Associated Diagnosis Comments FOREIGN BODY REMOVAL - EMBEDDED 12/31/2023 10:50 AM CDT Fish hook in finger from Last 3 Months Results * Foreign Body Removal (12/31/2023 10:50 AM CDT) Narrative Vanessa Gabriel MD - 12/31/2023 10:50 AM CDT Vanessa Gabriel MD ? 12/31/2023 10:52 AM Foreign Body Removal Date/Time: 12/31/2023 10:50 AM Performed by: Vanessa Gabriel MD Authorized by: Vanessa Gabriel MD ?? Consent: ??Consent obtained: ??Verbal ??Consent given by: ??Patient ??Risks discussed: ??Infection, pain and bleeding Leonore protocol: ??Patient identity confirmed: ??Verbally with patient [...] complications Vanessa Gabriel MD PROCEDURE/MINOR ASHISH ORDERABLES from Last 3 Months Care Teams Restaurant Manager Relationship Specialty Start Date End Date Jaleel Christian MD PCP - General Family Medicine 12/31/23
--- OUTSIDE RECORDS SUMMARY | 2024-01-23 10:46 | XMS_ITS | Encounter Summary ---
Author Organization [facility] Address [address] [place] [address] Care Team Providers Care Daycare Manager Name Role Phone Jaleel Christian MD Primary Care Provider [phone] Ricardo Ahn MD Unavailable [phone] Ruchi Blackman PA-C Unavailable [phone] Encounter Details Date Type Department Care Team (Late st Contact Info) Description 03/11/2020 [facility] [place] [facility] [address] [place] [address] [address] [place] [address] Ricardo Ahn MD [address] [facility] [address] [place] [address] Social History Tobacco Use Types [...] on filedocumented in this encounter Care Teams Daycare Manager Relationship Specialty Start Date End Date Jaleel Christian MD PCP - General Family Practice 10/21/19 Ricardo Ahn MD [address] [place] [phone] Assigned Heart and Vascular Provider 04/17/20 09/04/21 Ruchi Blackman PA-C [address] [place] [address] Assigned Neuroscience Provider 09/09/20 09/19/20 documented as of this encounter
--- OUTSIDE RECORDS SUMMARY | 2024-01-23 10:46 | XMS_ITS | Encounter Summary ---
Author Organization [facility] Address [address] [address] Phone Care Team Providers Care Auto Self Service Station Attendant Name Role Phone Jaleel Christian MD Primary Care Provider Unavail able Encounter Details Date Type Department Care Team (Latest Contact Info) Description 12/31/2023 Travel Social History Tobacco Use Types Packs/Day Years [...] on file documented as of this encounter Functional Status Functional Status Response Date of Assess ment Patient's Vision Adequate to Safely Complete Daily Activities Yes 12/31/2023 Patient's Memory Adequate to Safely Complete Daily Activities Yes 12/31/2023 Cognitive Status Response Date of Assessm ent Patient's Judgment Adequate to Safely Complete Daily Activities Yes 12/31/2023 documented as of this encounter Plan of Treatment Not on file documented as of this encounter Visit Diagnoses Not on filedocumented in this encounter Care Teams Auto Self Service Station Attendant Relationship Specialty Start Date End Date Jaleel Christian MD PCP - General Family Medicine 12/31/23 documented as of this encounter
--- OUTSIDE RECORDS SUMMARY | 2024-01-23 10:47 | XMS_ITS | Encounter Summary ---
Author Organization [facility] Address [address] [place] [address] Care Team Providers Care Loan Processing Supervisor Name Role Phone Jaleel Christian MD Primary Care Provider Ricardo Ahn MD Unavailable Ruchi Blackman PA-C Unavailable Encounter Details Date Type Department Care Team (Late st Contact Info) Description 11/22/2019 Telephone [facility] Neurology [address] [facility] 3rd [place] [address] Shine Vasquez MD [address] [place] [address] Social History Tobacco Use Types [...] on filedocumented in this encounter Care Teams Loan Processing Supervisor Relationship Specialty Start Date End Date Jaleel Christian MD PCP - General Family Practice 10/21/19 Ricardo Ahn MD [address] [place] [phone] Assigned Heart and Vascular Provider 04/17/20 09/04/21 Ruchi Blackman PA-C [address] [place], [place] [address] Assigned Neuroscience Provider 09/09/20 09/19/20 documented as of this encounter
--- OUTSIDE RECORDS SUMMARY | 2024-01-23 10:47 | XMS_ITS | Encounter Summary ---
Author Organization [facility] Address [address] [place] [address]. [place] [address] Care Team Providers Care Lapping Machine Operator Name Role Phone Jaleel Christian MD Primary Care Provider [phone] Ricardo Ahn MD Unavailable [phone] Ruchi Blackman PA-C Unavailable [phone] Encounter Details Date Type Department Care Team (Late st Contact Info) Description 11/01/2019 [facility] [address] [place] [address] Lennie Lewis LPN Social History Tobacco [...] on filedocumented in this encounter Care Teams Lapping Machine Operator Relationship Specialty Start Date End Date Jaleel Christian MD PCP - General Family Practice 10/21/19 Ricardo Ahn MD [address] [facility] [address] [place] [phone] Assigned Heart and Vascular Provider 04/17/20 3 Ruchi Blackman PA-C [address] [place] [address] Assigned Neuroscience Provider 09/09/20 09/19/20 documented as of this encounter
--- OUTSIDE RECORDS SUMMARY | 2024-01-23 10:47 | XMS_ITS | Encounter Summary ---
Author Organization [facility] Address [address] [place] [address]. [place] [address] Care Team Providers Care Refrigerated Company Driver Name Role Phone Jaleel Christian MD Primary Care Provider [phone] Ricardo Ahn MD Unavailable [phone] Ruchi Blackman PA-C Unavailable [phone] Encounter Details Date Type Department Care Team (Late st Contact Info) Description 11/14/2019 [facility] [address] [place] [address] Wesly Baez Social History Tobacco Use [...] on filedocumented in this encounter Care Teams Refrigerated Company Driver Relationship Specialty Start Date End Date Jaleel Christian MD PCP - General Family Practice 10/21/19 Ricardo Ahn MD [address] [facility] [address] [place] [phone] Assigned Heart and Vascular Provider 04/17/20 3 Ruchi Blackman PA-C [address] [place] [address] Assigned Neuroscience Provider 09/09/20 09/19/20 documented as of this encounter
== END 2024-01-23 10:15 | disposition home or self-care (01) ==
PROVIDERS: PCP Family Medicine; Visit Provider Family Medicine
DX: F41.8 Other specified anxiety disorders (principal); G25.81 Restless legs syndrome; M79.605 Pain in left leg; M79.604 Pain in right leg
CPT/HCPCS: 80048; 82728; 83540

== ENCOUNTER 2024-02-13 22:19 | Outpatient (REF) | payer OTHER, SELFPAY ==
--- OUTSIDE RECORDS SUMMARY | 2024-02-13 22:24 | XMS_ITS | Encounter Summary ---
Author Organization [facility] Address [address] [place] [address] Care Team Providers Care Marine Safety Officer Name Role Phone Jaleel Christian MD Primary Care Provider [phone] Ricardo Ahn MD Unavailable [phone] Ruchi Blackman PA-C Unavailable [phone] Encounter Details Date Type Department Care Team (Late st Contact Info) Description 02/18/2020 [facility] Medical Advice [facility] [address] [place] [address] Sarah Morrow APRN CNP NO [...] as of this encounter Plan of Treatment Upcoming Encounters Date Type Department Care Team (Late st Contact Info) Description 02/15/2024 4:00 PM CDT Virtual Visit [facility] [place] [address] [place] [phone] Remi Song MD [address] [place] [address] documented as of this encounter Visit Diagnoses Not on filedocumented in this encounter Care Teams Marine Safety Officer Relationship Specialty Start Date End Date Jaleel Christian MD PCP - General Family Practice 10/21/19 Ricardo Ahn MD [address] [place] [address] Assigned Heart and Vascular Provider 04/17/20 09/04/21 Ruchi Blackman PA-C [address] [place] [address] Assigned Neuroscience Provider 09/09/20 09/19/20 documented as of this encounter
--- OUTSIDE RECORDS SUMMARY | 2024-02-13 22:24 | XMS_ITS | Encounter Summary ---
Author Organization [facility] Address [address] [place] [address]. [place] [address] Care Team Providers Care Template Clerk Name Role Phone Jaleel Christian MD Primary Care Provider [phone] Ricardo Ahn MD Unavailable [phone] Ruchi Blackman PA-C Unavailable [phone] Encounter Details Date Type Department Care Team (Late Contact Info) Description 03/11/2020 [facility] Medical Advice [facility] [address] [place] [address] Ricardo Ahn MD [address] [facility] [address] [place] [address] Social History Tobacco Use Types [...] Encounters Date Type Department Care Team (Late Contact Info) Description 02/15/2024 4:00 PM CDT Virtual Visit [facility] [place] [address] [place] [phone] Remi Song MD [address] [place] [phone] documented as of this encounter Visit Diagnoses Not on filedocumented in this encounter Care Teams Template Clerk Relationship Specialty Start Date End Date Jaleel Christian MD PCP - General Family Practice 10/21/19 Ricardo Ahn MD [address] [place] [phone] Assigned Heart and Vascular Provider 04/17/20 09/04/21 Ruchi Blackman PAGunnarC [address] [place] [address] Assigned Neuroscience Provider 09/09/20 09/19/20 documented as of this encounter
--- OUTSIDE RECORDS SUMMARY | 2024-02-13 22:24 | XMS_ITS | Encounter Summary ---
Author Organization [facility] Address [address] [address] Phone Care Team Providers Care Mill Hand Plate Mill Name Role Phone Jaleel Christian MD Primary Care Provider Unavail able Reason for Visit * Reason Comments [place] Removal Encounter Details Date Type Department Care Team (Late st Contact Info) Description 12/31/2023 10:24 AM CDT - 12/31/2023 10:45 AM CDT Emergency [facility] EMERGENCY DEPARTMENT [address] [place] [phone] Vanessa Gabriel MD [address] [place], [place] [phone] Fish hook in finger (Primary Dx) Discharge [...] cannot be sent through Care Everywhere. * [place] Removed ([place] Sudanese) documented in this encounter Medications at Time [...] Means Destination Comment s Home and/or Self [facility] documented in this encounter ED Notes * Vanessa Gabriel MD - 12/31/2023 10:42 AM CDTAssociated Order(s): Foreign Body Removal Post-Procedure Diagnose(s): Fish hook in finger ED PROVIDER NOTE Name: Andrea Webster Date of : 1985 SUBJECTIVE: Chief Complaint: Chief Complaint Patient presents with [place] Removal History of Present Illness: Andrea Webster is a very pleasant 38 year old female who presents with a fish hook in her right middle finger. Was fishing on [employer] and accidentally herself with fishing lure. Tried to get it out herself but unsuccessful. No other injury She is right hand dominant. 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 Patients symptoms include: [place] to right hand 1 hr prior to [...] ??Patient ??Risks discussed: ??Infection, pain and bleeding [place] protocol: ??Patient identity confirmed: ??Verbally with patient [...] day. added in this encounter Care Teams Mill Hand Plate Mill Relationship Specialty Start Date End Date Jaleel Christian MD PCP - General Family Medicine 12/31/23 documented as of this encounter
--- OUTSIDE RECORDS SUMMARY | 2024-02-13 22:24 | XMS_ITS | Clinical Summary ---
Author Organization [facility] Address [address] [address] Phone Care Team Providers Care Industrial Sewer Name Role Phone aJleel Christian MD Primary Care Provider Unavail able [...] CDT - 12/31/2023 10:45 AM CDT Emergency [facility] EMERGENCY DEPARTMENT [address] [place] [phone] Vanessa Gabriel MD Fish hook in finger [...] ??Patient ??Risks discussed: ??Infection, pain and bleeding [place] protocol: ??Patient identity confirmed: ??Verbally with patient [...] ORDERABLES from Last 3 Months Care Teams Industrial Sewer Relationship Specialty Start Date End Date Jaleel Christian MD PCP - General Family Medicine 12/31/23
--- OUTSIDE RECORDS SUMMARY | 2024-02-13 22:24 | XMS_ITS | Encounter Summary ---
Author Organization [facility] Address [address] [place] [address]. [place] [address] Care Team Providers Care Operating Manager Name Role Phone Jaleel Christian MD Primary Care Provider Ricardo Ahn MD Unavailable [phone] Ruchi Blackman PA-C Unavailable [phone] Encounter Details Date Type Department Care Team (Late Contact Info) Description 12/11/2019 Orders Only [facility] STANDARD [address] [place] [address] Jose Manuel Strickland MD [address] [place] [address] Social History Tobacco Use Types Packs/Day Years [...] Description 02/15/2024 4:00 PM CDT Virtual Visit [facility] [place] [address] [place] [phone] Remi Song MD [address] [place] [address] documented as of this encounter Visit Diagnoses Not on filedocumented in this encounter Care Teams Operating Manager Relationship Specialty Start Date End Date Jaleel Christian MD PCP - General Family Practice 10/21/19 Ricardo Ahn MD [address] [place] [phone] Assigned Heart and Vascular Provider 04/17/20 09/04/21 Ruchi Blackman, PA-C [address] [place] [address] Assigned Neuroscience Provider 09/09/20 09/19/20 documented as of this encounter
--- OUTSIDE RECORDS SUMMARY | 2024-02-13 22:24 | XMS_ITS | Referral Summary ---
Author Organization [place] Address [address] [place] [address] Care Team Providers Care Supervisor Tower Name Role Phone Jaleel Christian MD Primary Care Provider [phone] Encounters Date Type Department Care Team Description 02/07/2024 Telephone [facility] [place] [address] [facility] [address] [place] [address] Nurse, [facility] Referral from Last 3 Months Allergies Active Allergy Reactions Criticality Noted Date [...] 11/20/2019 1:38 PM CDT Plan of Treatment Upcoming Encounters Date Type Department Care Team (Late st Contact Info) Description 02/15/2024 4:00 PM CDT Virtual Visit [facility] [place] [address] [place] [phone] Remi Song MD [address] [place] [id number] Procedures Procedure Name Priority Date/Time Associated Diagnosis Comments GLUCOSE BY METER Routine 12/17/2019 1:55 AM CDT PFO (patent foramen ovale) LIPID REFLEX TO DIRECT LDL PANEL Routine 10/19/2019 6:59 AM CDT Transient left leg weakness from Last 3 Months or Most Recently Relevant to Health Maintenance Results * Glucose by meter (12/17/2019 1:55 AM CDT) Glucose 88 70 - 99 mg/dL 12/17/2019 2:02 AM CDT POINT OF CARE TEST, GLUCOSE 12/17/2019 1:55 AM CDT 12/17/2019 2:02 AM CDT Jose Manuel Strickland MD LAB - BEAKER P OCT POINT OF CARE TEST, GLUCOSE * (ABNORMAL) Lipid panel reflex to direct LDL (10/19/2019 6:59 AM CDT) Cholesterol 121 <200 mg/dL 10/19/2019 7:39 AM CDT [facility] Triglycerides 47 <150 mg/dL 10/19/2019 7:39 AM CDT [facility] HDL Cholesterol 29(L) >49 mg/dL 0 7:42 AM CDT [facility] LDL Cholesterol Calculated 83 <100 mg/dL 10/19/2019 7:42 AM CDT [facility] Comment:Desirable: <100 mg/d l Non HDL Cholesterol 92 <130 mg/dL 10/19/2019 7:42 AM CDT [facility] Blood specimen (specimen) 10/19/2019 6:59 AM CDT 10/19/2019 7:00 AM CDT Dominguez Yuan MD LAB - BLOOD ORDERABL ES [facility] [address] [place] [address], [facility] [phone] from Last 3 Months or Most Recently Relevant to Health Maintenance Advance Directives For more information, please contact: [phone] * Full Code (Latest Code Status on [...] with patie nt/legal decision maker Care Teams Supervisor Tower Relationship Specialty Start Date End Date Jaleel Christian MD PCP - General Family Practice 10/21/19
--- OUTSIDE RECORDS SUMMARY | 2024-02-13 22:24 | XMS_ITS | Encounter Summary ---
Author Organization [place] Address [address] [place] [address] Care Team Providers Care Pot Pusher Name Role Phone Jaleel Christian MD Primary Care Provider [phone] Ricardo Ahn MD Unavailable Ruchi Blackman PA-C Unavailable [phone] Reason for Referral * Diagnostic Imaging XR (Routine) - Closed Specialty Diagnoses / Procedures Referred By Contjemal t Referred To Contact Radiology. Diagnoses PFO (patent foramen ovale) Procedures XR Chest 2 Views Jose Manuel Strickland MD [address] [place] [address] Xray [address] [place] [phone] Referral ID Status Reason Start Date Expiration Date Visits Re quested Visits Authorized [id number] Closed 12/10/2019 12/09/2020 1 1 Encounter Details Date Type Department Care Team (Late st Contact Info) Description 12/10/2019 Orders Only [facility] [address] [phone] Jose Manuel Strickland MD [address] [place] [id number] PFO (patent foramen ovale) (Primary Dx) Social [...] Description 02/15/2024 4:00 PM CDT Virtual Visit [facility] [place] [address] [place] [phone] Remi Song MD [address] [place] [address] documented as of this encounter Results * ABO/Rh type and screen (12/11/2019 1:03 PM CDT) Units Ordered 4 12/13/2019 5:50 AM CDT [facility] ABO A 12/11/2019 1:56 PM CDT [facility] RH(D) Neg [facility] Antibody Screen Neg 12/11/2019 1:56 PM CDT [facility] Test Valid Only At [facility] 12/11/2019 1:10 PM CDT [facility] Specimen Expires 12/14/2019 12/11/2019 1:10 PM CDT [facility] Crossmatch Red Blood Cells 12/13/2019 5:50 AM CDT [facility] Blood specimen (specimen) 12/11/2019 1:03 PM CDT 12/11/2019 1:04 PM CDT Jose Manuel Strickland MD LAB - BLOOD BA NK TEST ORDER [facility] [address] [address], [facility] [phone] * A1C FUTURE anytime (12/11/2019 1:03 PM CDT) Hemoglobin A1C 5.2 0 - 5.6 % 12/11/2019 1:27 PM CDT [facility] Comment: Normal <5.7% Prediabetes 5.7-6.4% ??Diabetes 6.5% or higher - adopted from ADA consensus guidelines. Blood specimen (specimen) 12/11/2019 1:03 PM CDT 12/11/2019 1:04 PM CDT Jose Manuel Strickland MD LAB - BLOOD OR DERABLES Performing Organization Address [facility] Co de Phone Number [facility] [address] [address], [facility] [phone] * CBC with platelets FUTURE anytime (12/11/2019 1:03 PM CDT) WBC 6.9 4.0 - 11.0 10e9/L 12/11/2019 1:14 PM CDT [facility] RBC Count 4.63 3.8 - 5.2 10e12/L 12/11/2019 1:14 PM CDT [facility] Hemoglobin 14.3 11.7 - 15.7 g/dL 12/11/2019 1:14 PM CDT [facility] Hematocrit 42.1 35.0 - 47.0 % 12/11/2019 1:14 PM CDT [facility] MCV 91 78 - 100 fl 12/11/2019 1:14 PM CDT [facility] MCH 30.9 26.5 - 33.0 pg 12/11/2019 1:14 PM CDT [facility] MCHC 34.0 31.5 - 36.5 g/dL 12/11/2019 1:14 PM CDT [facility] RDW 12.7 10.0 - 15.0 % 12/11/2019 1:14 PM CDT [facility] Platelet Count 266 150 - 450 10e9/L 12/11/2019 1:14 PM T [facility] Blood specimen (specimen) 12/11/2019 1:03 PM CDT 12/11/2019 1:04 PM CDT Jose Manuel Strickland MD LAB - BLOOD OR DERABLES [facility] [address] [place] [address], [facility] [phone] * (ABNORMAL) Comprehensive metabolic panel FUTURE anytime (12/11/2019 1:03 PM CDT) Sodium 138 133 - 144 mmol/L 12/11/2019 1:22 PM [facility] Potassium 3.2(L) 3.4 - 5.3 mmol/L 12/11/2019 1:22 PM [facility] Chloride 109 94 - 109 mmol/L 12/11/2019 1:22 PM [facility] Carbon Dioxide 25 20 - 32 mmol/L 12/11/2019 1:31 PM [facility] Anion Gap 4 3 - 14 mmol/L 12/11/2019 1:31 PM [facility] Glucose 79 70 - 99 mg/dL 12/11/2019 1:31 PM [facility] Urea Nitrogen 10 7 - 30 mg/dL 12/11/2019 1:31 PM [facility] Creatinine 0.79 0.52 - 1.04 mg/dL 12/11/2019 1:31 PM [facility] GFR Estimate >90 >60 mL/min/{1. 73_m2} 12/11/2019 1:31 PM [facility] Comment: Non GFR Calc Starting 06/12/2018, serum creatinine based estimated GFR (eGFR) will be calculated using the Chronic Kidney Disease Epidemiology Collaboration (CKD-EPI) equation. GFR Estimate If Black >90 >60 mL/min/{1. 73_m2} 12/11/2019 1:31 PM CDT [facility] Comment: GFR Calc Starting 06/12/2018, serum creatinine based estimated GFR (eGFR) will be calculated using the Chronic Kidney Disease Epidemiology Collaboration (CKD-EPI) equation. Calcium 8.7 8.5 - 10.1 mg/dL 12/11/2019 1:31 PM CDT [facility] Bilirubin Total 0.4 0.2 - 1.3 mg/dL 12/11/2019 1:31 PM CDT [facility] Albumin 3.9 3.4 - 5.0 g/dL 12/11/2019 1:31 PM CDT [facility] Protein Total 7.5 6.8 - 8.8 g/dL 12/11/2019 1:31 PM CDT [facility] Alkaline Phosphatase 80 40 - 150 U/L 12/11/2019 1:31 PM CDT [facility] ALT 22 0 - 50 U/L 12/11/2019 1:31 PM CDT [facility] AST 16 0 - 45 U/L 12/11/2019 1:31 PM CDT [facility] Blood specimen (specimen) 12/11/2019 1:03 PM CDT 12/11/2019 1:04 PM CDT Jose Manuel Strickland MD LAB - BLOOD OR DERABLES [facility] [address] [place] [address], [facility] [phone] * XR Chest 2 Views (12/11/2019 12:58 [...] defect documented in this encounter Care Teams Pot Pusher Relationship Specialty Start Date End Date Jaleel Christian MD PCP - General Family Practice 10/21/19 Ricardo Ahn MD [address] [facility] [address] [place] [phone] Assigned Heart and Vascular Provider 04/17/20 09/04/21 Ruchi Blackman PA-C [address] [place] [address] Assigned Neuroscience Provider 09/09/20 09/19/20 documented as of this encounter
--- OUTSIDE RECORDS SUMMARY | 2024-02-13 22:24 | XMS_ITS | Encounter Summary ---
Author Organization [facility] Address [address] [place] [address]. [place] [address] Care Team Providers Care Utility Bag Assembler Name Role Phone Jaleel Christian MD Primary Care Provider [phone] Ricardo Ahn MD Unavailable [phone] Ruchi Blackman PA-C Unavailable [phone] Encounter Details Date Type Department Care Team (Late Contact Info) Description 12/10/2019 Orders Only [facility] [address] [place] [phone] Jose Manuel Strickland MD [address] [place] [address] Social History Tobacco Use Types Packs/Day Years [...] 02/15/2024 4:00 PM CDT Virtual Visit [facility] [place] [address] [place] [phone] Remi Song MD [address] [place] [phone] documented as of this encounter Visit Diagnoses Not on filedocumented in this encounter Care Teams Utility Bag Assembler Relationship Specialty Start Date End Date Jaleel Christian MD PCP - General Family Practice 10/21/19 Ricardo Ahn MD [address] [place] [phone] Assigned Heart and Vascular Provider 04/17/20 09/04/21 Ruchi Blackman, PA-C [address] [place] [id number] Assigned Neuroscience Provider 09/09/20 09/19/20 documented as of this encounter
--- OUTSIDE RECORDS SUMMARY | 2024-02-13 22:24 | XMS_ITS | Encounter Summary ---
Author Organization [facility] Address [address] [place] [address] Care Team Providers Care Administrative Support Clerk Name Role Phone Jaleel Christian MD Primary Care Provider [phone] Ricardo Ahn MD Unavailable [phone] Ruchi Blackman PA-C Unavailable [phone] Encounter Details Date Type Department Care Team (Late st Contact Info) Description 11/22/2019 Telephone [facility] [address] [facility] [address] [place] [address] Shine Vasquez MD [address] [place] [address] Social History Tobacco Use Types Packs/Day [...] documented in this encounter Plan of Treatment Upcoming Encounters Date Type Department Care Team (Late st Contact Info) Description 02/15/2024 4:00 PM CDT Virtual Visit [facility] [place] [address] [place] [phone] Remi Song MD [address] [place] [phone] documented as of this encounter Visit Diagnoses Not on filedocumented in this encounter Care Teams Administrative Support Clerk Relationship Specialty Start Date End Date Jaleel Christian MD PCP - General Family Practice 10/21/19 Ricardo Ahn MD [address] [place] [phone] Assigned Heart and Vascular Provider 04/17/20 09/04/21 Ruchi Blackman PA-C 9 [place] [address] Assigned Neuroscience Provider 09/09/20 09/19/20 documented as of this encounter
--- OUTSIDE RECORDS SUMMARY | 2024-02-13 22:24 | XMS_ITS | Encounter Summary ---
Author Organization [facility] Address [address] [place] [address]. [place] [address] Care Team Providers Care Spring Intern Name Role Phone Jaleel Christian MD Primary Care Provider [phone] Reason for Visit * Reason Onset Date Comments Referral 02/07/2024 Encounter Details Date Type Department Care Team (Late st Contact Info) Description 02/07/2024 Telephone [facility] [place] [phone] [facility] [address] [address] Nurse, [facility] Referral Social History Tobacco Use Types Packs/Day Years [...] on file documented as of this encounter Miscellaneous Notes * Telephone Encounter - Rhoda Devries - 02/09/2024 11:23 AM CDT Spoke with patient and scheduled video visit. * Telephone Encounter - Mehreen Elliott - 02/07/2024 10:49 AM CDT Left voicemail for patient to call back to schedule appointment(s), provided telephone number for patient to call back to schedule. NEW VASCULAR PATIENT VIDEO consult with Dr. Song (video consult ok per scheduling guidelines for this diagnosis/referral) Please schedule this at next available Appt note: Ref by Heidi Casarez PA-C ([facility]) for muscle biopsy. * Telephone Encounter - Linda Herrera RN - 02/07/2024 10:04 AM CDT Referral received via Fax on 02/06/24. Pt referred to [facility] by Heidi Casarez PA-C ([facility]) for muscle biopsy. Routing to scheduling to coordinate the following: NEW VASCULAR PATIENT VIDEO consult with Dr. Song (video consult ok per scheduling guidelines for this diagnosis/referral) Please schedule this at next available Appt note: Ref by Heidi Casarez PA-C ([facility]) for muscle biopsy. MANAN JordanN, RN, -[facility] [place] documented in this encounter Plan of Treatment Upcoming Encounters Date Type Department Care Team (Late st Contact Info) Description 02/15/2024 4:00 PM CDT Virtual Visit [facility] [place] [address] [place] [phone] Remi Song MD [address] [place] [address] documented as of this encounter Visit Diagnoses Not on filedocumented in this encounter Care Teams Spring Intern Relationship Specialty Start Date End Date Jaleel Christian MD PCP - General Family Practice 10/21/19 documented as of this encounter
--- OUTSIDE RECORDS SUMMARY | 2024-02-13 22:24 | XMS_ITS | Clinical Summary ---
Author Organization [facility] Address [address] [place] [address] Care Team Providers Care Structural Metal Fabricator Apprentice Name Role Phone Jaleel Christian MD Primary Care Provider [phone] Allergies Active Allergy Reactions Criticality Noted Date [...] Acute CVA (cerebrovascular accident) 10/18/2019 Pyelonephritis Depression Encounters Date Type Department Care Team Description 02/07/2024 Telephone [facility] [place] [address] [place] [phone] Nurse, [facility] Referral from Last 3 Months Family History Medical History Relation Comments Coronary [...] Center Vascular [facility] [place] [address] [place] [phone] Remi Song MD [address] [place] [address] Health Maintenance Due Date Last Done Comments ANNUAL REVIEW OF HM ORDERS 1984 MAMMO SCREENING 1984 YEARLY PREVENTIVE VISIT 1984 HIV SCREENING 02/05/1999 HEPATITIS C SCREENING 02/05/2002 PAP 05/12/2020 05/12/2017, 05/12/2017 GLUCOSE 12/16/2022 12/17/2019, 11/25, 12/16/2019, Additional history exists COVID-19 Vaccine (3 - 2022- season) 2023 06/23/2021, 05/28/2021 PHQ-2 (once per calendar year) 2023 INFLUENZA VACCINE (#1) 2024 9, 02/28/2016, 04/01/2011, Additional history exists LIPID 10/18/2024 10/19/2019 ADVANCE CARE PLANNING 12/12/2024 12/13/2019 DTAP/TDAP/TD IMMUNIZATION (5 - Td or Tdap) 12/30/2033 12/31/2023, 05/12/2017, 08/21/2007, Additional history exists HEPATITIS B IMMUNIZATION Completed 013, 09/12/2012, 08/15/2012 HPV IMMUNIZATION Aged Out No longer e ligible based on patient's age to complete this topic IPV IMMUNIZATION Aged Out No longer e ligible based on patient's age to complete this topic MENINGITIS IMMUNIZATION Aged Out No l onger eligible based on patient's age to complete this topic Pneumococcal Vaccine: Pediatrics (0 to 5 Years) and At-Risk Patients (6 to 64 Years) Aged Out No longer eligible based on patient's age to complete [...] 121 <200 mg/dL 10/19/2019 7:39 AM CDT [facility] Triglycerides 47 <150 mg/dL 10/19/2019 7:39 AM CDT [facility] HDL Cholesterol 29(L) >49 mg/dL 0 7:42 AM CDT [facility] LDL Cholesterol Calculated 83 <100 mg/dL 10/19/2019 7:42 AM CDT [facility] Comment:Desirable: <100 mg/d l Non HDL Cholesterol 92 <130 mg/dL 10/19/2019 7:42 AM T [facility] Blood specimen (specimen) 10/19/2019 6:59 AM CDT 10/19/2019 7:00 AM CDT Dominguez Yuan MD LAB - BLOOD ORDERABL ES [facility] [address] [place] [address], [facility] [phone] from Last 3 Months or Most Recently Relevant to Health Maintenance Advance Directives For more information, please contact: [phone] * Full Code (Latest Code Status on [...] with patie nt/legal decision maker Care Teams Structural Metal Fabricator Apprentice Relationship Specialty Start Date End Date Jaleel Christian MD PCP - General Family Practice 10/21/19
--- OUTSIDE RECORDS SUMMARY | 2024-02-13 22:24 | XMS_ITS | Encounter Summary ---
Author Organization [facility] Address [address] [place] [address]. [place] [address] Care Team Providers Care Soils Engineer Name Role Phone Jaleel Christian MD Primary Care Provider [phone] Ricardo Ahn MD Unavailable [phone] Ruchi Blackman PA-C Unavailable [phone] Encounter Details Date Type Department Care Team (Late st Contact Info) Description 11/01/2019 MyC Medical Advice [facility] [address] [place] [address] Lennie Lewis LPN Social History Tobacco [...] Description 02/15/2024 4:00 PM CDT Virtual Visit [facility] [place] [address] [place] [phone] Remi Song MD [address] [place] [address] documented as of this encounter Visit Diagnoses Not on filedocumented in this encounter Care Teams Soils Engineer Relationship Specialty Start Date End Date Jaleel Christian MD PCP - General Family Practice 10/21/19 Ricardo Ahn MD [address] [place] [address] Assigned Heart and Vascular Provider 04/17/20 09/04/21 Ruchi Blackman PA-C 9 [place] [address] Assigned Neuroscience Provider 09/09/20 09/19/20 documented as of this encounter
--- OUTSIDE RECORDS SUMMARY | 2024-02-13 22:24 | XMS_ITS | Encounter Summary ---
Author Organization [facility] Address [address] [address] Phone Care Team Providers Care Stunt Performer Name Role Phone Jaleel Christian MD Primary [...] on filedocumented in this encounter Care Teams Stunt Performer Relationship Specialty Start Date End Date Jaleel Christian MD PCP - General Family Medicine 12/31/23 documented as of this encounter
--- OUTSIDE RECORDS SUMMARY | 2024-02-13 22:24 | XMS_ITS | Encounter Summary ---
Author Organization [facility] Address [address] [place] [address]. [place] [address] Care Team Providers Care Drawbridge Tender Name Role Phone Jaleel Christian MD Primary Care Provider [phone] Ricardo Ahn MD Unavailable [phone] Ruchi Blackman PA-C Unavailable [phone] Encounter Details Date Type Department Care Team (Late st Contact Info) Description 11/14/2019 MyC Medical Advice [facility] [place] [address] [facility] [address] [place] [phone] Wesly Baez Social History Tobacco Use Types [...] Description 02/15/2024 4:00 PM CDT Virtual Visit [facility] [place] [address] [place] [phone] Remi Song MD [address] [place] [address] documented as of this encounter Visit Diagnoses Not on filedocumented in this encounter Care Teams Drawbridge Tender Relationship Specialty Start Date End Date Jaleel Christian MD PCP - General Family Practice 10/21/19 Ricardo Ahn MD [address] [place] [address] Assigned Heart and Vascular Provider 04/17/20 09/04/21 Ruchi Blackman PA-C 9 [place] [address] Assigned Neuroscience Provider 09/09/20 09/19/20 documented as of this encounter
[2024-02-13 22:49] LABS: Sodium* 138 mmol/L (135-149)
[2024-02-13 23:02] LABS: C Reactive Protein* < 0.5 mg/dL (0.5-1.0)
[2024-02-13 23:23] LABS: Erythrocyte SedimentationRate* 2 mm/hr (2-20)
[2024-02-17 01:28] LABS: Anti-Nuclear Ab(ANA)IgG ELISA None Detected (None Detected)
== END 2024-02-13 22:20 | disposition home or self-care (01) ==
LOC: NPINS 22:19
PROVIDERS: PCP Family Medicine; Visit Provider Physician Assistant
DX: M79.604 Pain in right leg (principal); M79.605 Pain in left leg; Z79.899 Other long term (current) drug therapy
CPT/HCPCS: 84295; 85651; 86039; 86140

== ENCOUNTER 2024-03-04 13:05 | Outpatient (CLI) | payer OTHER, SELFPAY ==
--- OUTSIDE RECORDS SUMMARY | 2024-03-04 13:07 | XMS_ITS | Clinical Summary ---
Author Organization [facility] Address [address] [address] Phone Care Team Providers Care Nursing Home Admissions Director Name Role Phone Jaleel Christian MD Primary [...] CDT - 12/31/2023 10:45 AM CDT Emergency [facility] [address] [place] [phone] Vanessa Gabriel MD Fish hook in finger [...] ??Patient ??Risks discussed: ??Infection, pain and bleeding [place] protocol: ??Patient identity confirmed: ??Verbally with patient [...] ORDERABLES from Last 3 Months Care Teams Nursing Home Admissions Director Relationship Specialty Start Date End Date Jaleel Christian MD PCP - General Family Medicine 12/31/23
--- OUTSIDE RECORDS SUMMARY | 2024-03-04 13:08 | XMS_ITS | Encounter Summary ---
Author Organization [facility] Address [address] [place] [address]. [place] [address] Care Team Providers Care Call Center Coordinator Name Role Phone Jaleel Christian MD Primary Care Provider [phone] Encounter Details Date Type Department Care Team (Late st Contact Info) Description 02/26/2024 Telephone [facility] [place] [address] [place] [phone] Remi Song MD [address] [place], [place] [id number] Social History Tobacco Use Types Packs/Day Years Used Date Smoking Tobacco: Some Days Cigarettes Smokeless Tobacco: Never Comments:a couple cigarettes daily Alcohol Use Standard Drinks/Week Comments Not Currently 0 (1 standard drink = 0.6 oz pur e alcohol) Adolescent Education Answer Date Record ed Getting School Help Needed Not on file 03/18 Interpersonal Safety Answer Date Record ed Do you feel physically and e motionally safe where you currently live? Yes 02/27/2024 Within the past 12 months, h ave you been hit, slapped, kicked or otherwise physically hurt by someone? No 02/27/2024 Within the past 12 months, h ave you been humiliated or emotionally abused in other ways by your partner or ex-partner? No 02/27/2024 Sex and Gender Information Value Date Recorded Sex Assigned at Not on file Gender Identity Not on file Sexual Orientation Not on file documented as of this encounter Miscellaneous Notes * Telephone Encounter - Remi Song MD - 02/26/2024 9:[address] [facility] Andrea MARIELLE Webster who had a phone consultation with me about neuropathic pain. Originally the consult came through for a muscle biopsy. We were able to talk to neurology and clarified that they do want a nerve biopsy. Thus, we plan to perform a sural nerve biopsy with the patient in a prone position tomorrow morning. I was unable to reach patient and left a message on cell phone. No laboratory tests are required preoperatively. Remi Song MD documented in this encounter Plan of Treatment Not on file documented as of this encounter Goals Goal Patient Goal Type Associated Problems Recent Progress Patient-Stated? Author MYC ECC SURG ENROLL Care Plan MyC ECC SURG ENROLL No Tatiana Mcginnis Care pathway for general surgery Care Plan Care pathway for general surgery No Audra Lira MYC ECC SURG DAY 10 MED Care Plan Care pathway for general surgery No Audra Lira MYC ECC GENERAL SURGERY Care Plan General Surgery Health Exam Escalation No Audra Lira MYC ECC SURG HEALTH NOT YES - 5 Care Plan MYC ECC SURG HEALTH NOT YES -5 No Audra Lira documented as of this encounter Visit Diagnoses Not on filedocumented in this encounter Additional Health Concerns Active Problems Noted Date Diagnosed Date MyC ECC SURG ENROLL 02/20/2024 Care pathway for general surgery 02/20/2024 General Surgery Health Exam Escalation MYC ECC SURG HEALTH NOT YES -5 02/20/2024 documented as of this encounter Care Teams Call Center Coordinator Relationship Specialty Start Date End Date Jaleel Christian MD PCP - General Family Practice 10/21/19 documented as of this encounter
--- OUTSIDE RECORDS SUMMARY | 2024-03-04 13:08 | XMS_ITS | Encounter Summary ---
Author Organization [facility] Address [address] [place] [address] Care Team Providers Care Foam Dispenser Name Role Phone Jaleel Christian MD Primary Care Provider Encounter Details Date Type Department Care Team (Late st Contact Info) Description 02/19/2024 MyC Medical Advice [facility] [address] [phone] iLnda Herrera, RN Social History Tobacco Use Types Packs/Day Years [...] on filedocumented in this encounter Care Teams Foam Dispenser Relationship Specialty Start Date End Date Jaleel Christian MD PCP - General Family Practice 10/21/19 documented as of this encounter
--- OUTSIDE RECORDS SUMMARY | 2024-03-04 13:08 | XMS_ITS | Encounter Summary ---
Author Organization [facility] Address [address] [place] [address]. [place] [address] Care Team Providers Care Assembler Cards And Announcements Name Role Phone Jaleel Christian MD Primary Care Provider [phone] Encounter Details Date Type Department Care Team (Late st Contact Info) Description 02/16/2024 Medical Correspondence [facility] [address] [place] [phone] Scan, Non-Provider Social History Tobacco Use Types Packs/Day Years [...] on filedocumented in this encounter Care Teams Assembler Cards And Announcements Relationship Specialty Start Date End Date Jaleel Christian MD PCP - General Family Practice 10/21/19 documented as of this encounter
--- OUTSIDE RECORDS SUMMARY | 2024-03-04 13:08 | XMS_ITS | Encounter Summary ---
Author Organization [facility] Address [address] [place] [address]. [place] [address] Care Team Providers Care Army Helicopter Pilot Name Role Phone Jaleel Christian MD Primary Care Provider [phone] Encounter Details Date Type Department Care Team (Late st Contact Info) Description 03/04/[address] [facility] [place] [address] [place] [phone] Remi Song MD [address] [place], [place] [phone] Social History Tobacco Use Types Packs/Day Years Used Date Smoking Tobacco: Every Day Cigarettes Smokeless Tobacco: Never Comments:a couple cigarettes [...] Telephone Encounter - Remi Song MD - 03/04/2024 12:21 PM CDT [facility] I called Andrea Webster after her left sural nerve biopsy last week. I left a message on her cell phone this afternoon. Pathology is still pending from [facility]. She will follow-up with [facility], [facility]. I told her to call if there is any concerns. Remi Song MD documented in this encounter [...] documented as of this encounter Care Teams Army Helicopter Pilot Relationship Specialty Start Date End Date Jaleel Christian MD PCP - General Family Practice 10/21/19 documented as of this encounter
--- OUTSIDE RECORDS SUMMARY | 2024-03-04 13:08 | XMS_ITS | Referral Summary ---
Author Organization [facility] Address [address] [place] [address] Care Team Providers Care Engineering Production Liaison Name Role Phone Jaleel Christian MD Primary Care Provider [phone] Encounters Date Type Department Care Team Description 03/04/2024 Telephone [facility] [place] [address] [place] [phone] Remi Song MD 02/27/2024 Travel 02/27/2024 7:30 AM CDT - 02/27/2024 8:40 AM CDT Surgery [facility] [address] [place] [phone] Remi Song MD LEFT SURAL NERVE BIOPSY 02/27/2024 7:20 AM CDT Anesthesia Event [facility] [address] [place] [phone] Florentino Hardy MD Dennen, Kristina Nguyen, APRN CODE AND TEST CLERK 02/27/2024 5:36 AM CDT - 02/27/2024 9:25 AM CDT Hospital Encounter [facility] PreOP/Phase II [address] [place] [phone] Remi Song MD Neuropathy (Primary Dx) Discharge Disposition: Home or Self Care 02/26/2024 Telephone [facility] [address] [place] [phone] Remi Song MD 02/19/2024 Telephone [facility] [address] [place] [phone] Remi Song MD Surgery Scheduling 02/19/2024 MyC Medical Advice [facility] [address] [place] [phone] Linda Herrera RN 02/16/2024 Medical [facility] [address] [place] [phone] Scan, Non-Provider 02/15/2024 4:00 PM CDT Virtual Visit [facility] [address] [place] [phone] Remi Song MD Myositis of left thigh, unspecified myositis type (Primary Dx); Peripheral polyneuropathy 02/07/2024 Telephone [facility] [address] [place] [phone] Nurse, [facility] Referral 02/05/2024 Medical Correspondence [facility] [address] [place] [phone] Scan, Non-Provider from Last 3 Months Allergies Active Allergy Reactions Criticality Noted Date Comments Buspirone 01/23/2024 Ciprofloxacin Swelling High 12/02/2019 Sulfa Antibiotics Anaphylaxis High 10/18/2019 Medications Medication Sig Dispensed Refills Start Date End Date Status DULoxetine (CYMBALTA) 30 MG capsule Take 30 mg by mouth daily. Active pregabalin (LYRICA) 75 MG capsule Active cholecalciferol (VITAMIN D3) 125 mcg (5000 units) capsule Active OXcarbazepine (TRILEPTAL) 150 MG tablet 02/08/2024 Active aspirin (ASA) 325 MG EC tablet Take 325 mg by mouth daily. Active albuterol (PROAIR HFA/PROVENTIL HFA/VENTOLIN HFA) 108 (90 Base) MCG/ACT inhaler Inhale 2 puffs into the lungs every 6 hours as needed for shortness of breath, wheezing or cough. Active naproxen sodium 220 MG capsule Take 220 mg by mouth 2 times daily as needed (pain). Active ibuprofen (ADVIL/MOTRIN) 600 MG tabletIndicatio ns:Neuropathy Take 1 tablet (600 mg) by mouth every 6 hours as needed for moderate pain. 02/27/2024 Active venlafaxine (EFFEXOR-XR) 75 MG 24 hr capsule Take 75 mg by mouth 2 times daily as needed (Patient taking differently than prescribed : RX states 75mg twice daily) 02/15/20 24 Discontinued LORazepam (ATIVAN) 0.5 MG tablet Take 0.5 mg by mouth daily as needed for anxiety 02/15/20 24 Discontinued methocarbamol (ROBAXIN) 750 MG tabletIndicatio ns:S/P patent foramen ovale closure Take 1 tablet (750 mg) by mouth 4 times daily as needed for muscle spasms 60 tablet 12/17/2019 02/15/20 24 Discontinued oxyCODONE (ROXICODONE) 5 MG tabletIndicatio ns:S/P patent foramen ovale closure Take 1 tablet (5 mg) by mouth every 4 hours as needed for moderate to severe pain 50 tablet 12/17/2019 02/15/20 24 Discontinued omeprazole (PRILOSEC) [address] capsule Take 20 mg by mouth daily 02/15/20 24 Discontinued clonazePAM (KLONOPIN) 0.5 MG tablet 02/27/20 24 Discontinued(Med Rec(No AVS / No eCancel)) Active Problems Problem Noted Date Diagnosed Date Fluid overload 12/17/2019 Anemia due to blood loss, acute 12/17/2019 S/P patent foramen ovale closure 12/13/2019 PFO (patent foramen ovale) 10/21/2019 Acute CVA (cerebrovascular accident) 10/18/2019 Pyelonephritis Depression Social History Tobacco Use Types Packs/Day Years Used Date Smoking Tobacco: Every Day Cigarettes Smokeless Tobacco: Never Tobacco Cessation:Ready to Q uit: Not Asked; Counseling Given: Not Answered Comments:a couple cigarettes daily Alcohol Use Standard [...] Sign Reading Time Taken Comments Blood Pressure 103/71 02/27/2024 9:10 AM CDT Pulse 61 02/27/2024 9:10 AM CDT Temperature 36.1 ??C (97 ??F) 02/27/2024 9:10 AM CDT Respiratory Rate 18 02/27/2024 9:10 AM CDT Oxygen Saturation 100% 02/27/2024 9:10 AM CDT Inhaled Oxygen Concentration - - Weight 75.8 kg (167 lb 3.2 oz) 02/27/2024 6:05 A M CDT Height 180.3 cm (5' 11) 02/27/2024 6:05 AM CDT Body Mass Index 23.32 02/27/2024 6:05 AM CDT Plan of Treatment Not on file Goals Goal Patient Goal Type Associated Problems [...] HEALTH NOT YES -5 No Audra Lira Procedures Procedure Name Priority Date/Time Associated Diagnosis Comments BIOPSY, MUSCLE 02/27/2024 7:25 AM CDT Peripheral polyneuropathy Special Needs -asa: hold 5 days prior HCG QUALITATIVE URINE STAT 02/27/2024 6:05 AM CDT GLUCOSE BY METER Routine 12/17/2019 1:55 AM CDT PFO (patent foramen ovale) LIPID REFLEX TO DIRECT LDL PANEL Routine 10/19/2019 6:59 AM CDT Transient left leg weakness from Last 3 Months or Most Recently Relevant to Health Maintenance Results * HCG qualitative urine - Pre-Op (02/27/2024 6:05 AM CDT) hCG Urine Qualitative Negative Negative AURA 02/27/2024 6:14 AM CDT LABORATORY Comment:This test is for scr eening purposes. Results should be interpreted along with the clinical picture. Confirmation testing is available if warranted by ordering USB250, HCG Quantitative . Urine MID-STREAM URINE SPECIMEN / Unknown Non-blood Collection / Unknown 02/27/2024 6:05 AM CDT 02/27/2024 6:07 AM CDT Florentino Hardy MD LAB - URINE ORDER [facility] [address] floor, [address] [place] [address], [facility] [phone] * Glucose by meter (12/17/2019 1:55 AM CDT) Glucose 88 70 - 99 mg/dL 12/17/2019 2:02 AM CDT POINT OF CARE TEST, GLUCOSE 12/17/2019 1:55 AM CDT 12/17/2019 2:02 AM CDT Jose Manuel Strickland MD LAB - [facility] POINT OF CARE TEST, GLUCOSE * (ABNORMAL) Lipid panel reflex to direct LDL (10/19/2019 6:59 AM CDT) Cholesterol 121 <200 mg/dL 10/19/2019 7:39 AM CDT [facility] Triglycerides 47 <150 mg/dL 10/19/2019 7:39 AM CDT [facility] HDL Cholesterol 29(L) >49 mg/dL 0 7:42 AM T [facility] LDL Cholesterol Calculated 83 <100 mg/dL 10/19/2019 7:42 AM T [facility] Comment:Desirable: <100 mg/d l Non HDL Cholesterol 92 <130 mg/dL 10/19/2019 7:42 AM T [facility] Blood specimen (specimen) 10/19/2019 6:59 AM CDT 10/19/2019 7:00 AM CDT Dominguez Yuan MD LAB - BLOOD ORDERABL ES [facility] [address] [place], [place] [address] [phone] from Last 3 Months or Most Recently Relevant to Health Maintenance Additional Health Concerns Active Problems Noted Date Diagnosed Date MyC ECC SURG ENROLL 02/20/2024 Care pathway for general surgery 02/20/2024 General Surgery Health Exam Escalation 4 MYC ECC SURG HEALTH NOT YES -5 02/20/2024 Advance Directives For more information, please contact: [phone] * Full Code (Latest Code Status on File) Date Activated Date Inactivated Comments 12/17/2019 10:31 AM 02/27/2024 5:36 AM Question Answer Comments Code status determined [...] with patie nt/legal decision maker Care Teams Engineering Production Liaison Relationship Specialty Start Date End Date Jaleel Christian MD PCP - General Family Practice 10/21/19
--- OUTSIDE RECORDS SUMMARY | 2024-03-04 13:08 | XMS_ITS | Encounter Summary ---
Author Organization [facility] Address [address] [address] Phone Care Team Providers Care Presser Cotton Ginning Name Role Phone Jaleel Christian MD Primary Care Provider Unavail able Reason for Visit * Reason Comments [place] Removal Encounter Details Date Type Department Care Team (Late st Contact Info) Description 12/31/2023 10:24 AM CDT - 12/31/2023 10:45 AM CDT Emergency [facility] [address] [place] [phone] Vanessa Gabriel MD [address] [place], [place] [phone] Fish hook in finger (Primary Dx) Discharge [...] cannot be sent through Care Everywhere. * [place] Removed (Danish) documented in this encounter Medications at Time [...] Means Destination Comment s Home and/or Self Usp documented in this encounter ED Notes * Vanessa Gabriel MD - 12/31/2023 10:42 AM CDTAssociated Order(s): Foreign Body Removal Post-Procedure Diagnose(s): Fish hook in finger ED PROVIDER NOTE Name: Andrea Webster Date of : 1985 SUBJECTIVE: Chief Complaint: Chief Complaint Patient presents with [place] Removal History of Present Illness: Andrea Webster is a very pleasant 38 year old female who presents with a fish hook in her right middle finger. [place] and accidentally herself with fishing lure. Tried to get it out herself but unsuccessful. No other injury She is right hand dominant. 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 Patients symptoms include: [place] to right hand 1 hr prior to [...] ??Patient ??Risks discussed: ??Infection, pain and bleeding [place] protocol: ??Patient identity confirmed: ??Verbally with patient [...] day. added in this encounter Care Teams Presser Cotton Ginning Relationship Specialty Start Date End Date Jaleel Christian MD PCP - General Family Medicine 12/31/23 documented as of this encounter
--- OUTSIDE RECORDS SUMMARY | 2024-03-04 13:08 | XMS_ITS | Encounter Summary ---
Author Organization [facility] Address [address] [place] [address] Care Team Providers Care Electrical Logging Engineer Name Role Phone Jaleel Christian MD Primary Care Provider Reason for Visit * Auth/Cert Specialty Diagnoses / Procedures Referred By Yovani t Referred To Contact Surgery Diagnoses Peripheral polyneuropathy Peripheral polyneuropathy [G62.9] Procedures AL BIOPSY MUSCLE, SUPERFICIAL AL BIOPSY MUSCLE, DEEP AL BIOPSY MUSCLE/SOFT TISSUE, PERCUTANEOUS NEEDLE AL LIGATION OR BIOPSY TEMPORAL ARTERY LEFT SURAL NERVE BIOPSY Periop Services [address] [place] [address] Referral ID Status Reason Start Date Expiration Date Visits Re quested Visits Authorized [id number] 1 1 Encounter Details Date Type Department Care Team (Late st Contact Info) Description 02/27/2024 7:30 AM CDT - 02/27/2024 8:40 AM CDT Surgery [facility] PeriOP Services [address] [place] [address] Remi Song MD [address] [place] [address] LEFT SURAL NERVE BIOPSY Surgery Details Date/Time Status Location OR Service Patient Class Case Class Case Type Trauma Case? 02/27/24 7:30 AM Posted OR OR [facility] General Same Day Surgery Elective Panel 1 Procedure LRB Anes Op Region Wound Class Comments LEFT SURAL NERVE BIOPSY Left MAC Update I-Irasema n Surgeon Surgeon Role Service Panel Remi Song MD Primary General 1 Special Needs -asa: hold 5 days prior documented in this encounter Social History Tobacco Use Types Packs/Day Years [...] Sign Reading Time Taken Comments Blood Pressure 97/69 02/27/2024 8:30 AM CDT Pulse 63 02/27/2024 8:30 AM CDT Temperature 36.1 ??C (97 ??F) 02/27/2024 8:10 AM CDT Respiratory Rate 19 02/27/2024 8:30 AM CDT Oxygen Saturation 100% 02/27/2024 8:30 AM CDT Inhaled Oxygen Concentration - - Weight 75.8 kg (167 lb 3.2 oz) 02/27/2024 6:05 A M CDT Height 180.3 cm (5' 11) 02/27/2024 6:05 AM CDT Body Mass Index 23.32 02/27/2024 6:05 AM CDT documented in this encounter Discharge Instructions * Discharge Instructions* Marleni Olmos RN - 02/27/2024 8:08 AM CDT Remove dressing on lower left leg in 3-4 days. Reasons to contact your surgeon: Signs of possible infection: Check your incision daily for redness, swelling, warmth, red streaks or foul drainage. Elevated temperature. Pain not controlled with pain medication and/or rest. Uncontrolled nausea or vomiting. Any questions or concerns. Same Day Surgery Discharge Instructions for Sedation and General Anesthesia It's not unusual to feel dizzy, light-headed or faint for up to 24 hours after surgery or while taking pain medication. If you have these symptoms: sit for a few minutes before standing and have someone assist you when you get up to walk or use the bathroom. You should rest and relax for the next 24 hours. We recommend you make arrangements to have an adult stay with you for at least 24 hours after your discharge. Avoid hazardous and strenuous activity. DO NOT DRIVE any vehicle or operate mechanical equipment for 24 hours following the end of your surgery. Even though you may feel normal, your reactions may be affected by the medication you have received. Do not drink alcoholic beverages for 24 hours following surgery. Slowly progress to your regular diet as you feel able. It's not unusual to feel nauseated and/or vomit after receiving anesthesia. If you develop these symptoms, drink clear liquids (apple juice, sterling andrea, broth, 7-up, etc. ) until you feel better. If your nausea and vomiting persists for 24 hours, please notify your surgeon. All narcotic pain medications, along with inactivity and anesthesia, can cause constipation. Drinking plenty of liquids and increasing fiber intake will help. For any questions of a medical nature, call your surgeon. Do not make important decisions for 24 hours. If you had general anesthesia, you may have a sore throat for a couple of days related to the breathing tube used during surgery. You may use Cepacol lozenges to help with this discomfort. If it worsens or if you develop a fever, contact your surgeon. If you feel your pain is not well managed with the pain medications prescribed by your surgeon, please contact your surgeon's office to let them know so they can address your concerns. If you have questions or concerns about your procedure call Dr Remi Song at [phone] documented in this encounter Medications at Time of Discharge Medication Sig Dispensed Refills Start Date End Date albuterol (PROAIR HFA/PROVENTIL HFA/VENTOLIN HFA) 108 (90 Base) MCG/ACT inhaler Inhale 2 puffs into the lungs every 6 hours as needed for shortness of breath, wheezing or cough. aspirin (ASA) 325 MG EC tablet Take 325 mg by mouth daily. cholecalciferol (VITAMIN D3) 125 mcg (5000 units) capsule DULoxetine (CYMBALTA) 30 MG capsule Take 30 mg by mouth daily. ibuprofen (ADVIL/MOTRIN) 600 MG tabletIndications:Neurop athy Take 1 tablet (600 mg) by mouth every 6 hours as needed for moderate pain. 02/27/2024 naproxen sodium 220 MG capsule Take 220 mg by mouth 2 times daily as needed (pain). OXcarbazepine (TRILEPTAL) 150 MG tablet 02/08/2024 pregabalin (LYRICA) 75 MG capsule documented as of this encounter Nursing Notes * Marleni Olmos RN - 02/27/2024 9:10 AM CDT Discharge instructions reviewed with Gene, over the phone in presence of pt. All questions answered. No further concerns at this point. Teach back method used to ensure patient and family/friend understanding. OTC Ibuprofen ordered to be taken at home. IV removed. All belongings returned. Pt escorted out of hospital via wheelchair. Work note sent home with pt. * Marleni Olmos RN - 02/27/2024 8:45 AM CDT Pt dressed, up in recliner and transported to Phase 2. documented in this encounter Miscellaneous Notes * Op Note - Remi Song MD - 02/27/2024 7:40 AM CDT OPERATIVE NOTE PROCEDURE DATE: 02/27/2024 PRE-OP DIAGNOSIS: Progressive neuropathic leg pain POST-OP DIAGNOSES: Same PROCEDURE PERFORMED: Left excisional sural nerve biopsy SURGEON: Remi Song M.D. ANESTHESIA: Local with MAC PRE-OP MEDICATIONS: None INDICATIONS FOR PROCEDURE: 39-year-old patient in good health is noted progressive worsening left greater than right neuropathic pain in her legs. She has been evaluated at [facility] They have recommended a sural nerve biopsy. Risk benefits reviewed with the patient on vi mason visit the clinic and again today. Aware there may be permanent numbness in the distal sural nerve distribution following excisional biopsy. DESCRIPTION OF PROCEDURE: Brought the op room placed supine. Duplex ultrasound was used to ryan thelesser saphenous vein in the distal ankle. The left leg was prepped and draped. Timeout was called and the sites were identified. 1% lidocaine was injected to fill block fashion. A vertical incision was made over the distal anklewith a 15 blade scalpel. Electrocautery was used for hemostasis. We dissected down to a identified the lesser saphenous vein. Just medial to this there was the sural nerve. Clinically this was unremarkable. This was cautiously manipulated and with transection patient experienced no discomfort at all which is somewhat unusual. We removed a 3 cm segment. The proximal portion was marked with blue ink and this placed and sterile saline. Wound was anesthetized with 0.5% Marcaine. Subcutaneous tissue approximated interrupted 3-0 Vicryl and skin was closed with 3-0 Monocryl in a subcu fashion followed by Tegaderm dressing. On the back table the proximal portion of the nerve was transected and placed within the EM fixative. The other segment was placed on a sterile tongue blade with sterile saline and placed within a urine cup. Both of these were delivered to the pathology lab by myself for transfer to [facility] [place] [place] for further evaluation. Patient tolerated procedure well. EBL: Less than 1 mL COMPLICATIONS: None OPERATIVE FINDINGS: Clinically unremarkable nerve but no sensation with transection. Patient will follow-up in several weeks once the pathology is available with [facility] Remi Song MD documented in this encounter Plan of Treatment Pending Results Name Type Priority Associated Diagnoses Date /Time Nerve Biopsy (Reference Laboratory) Pathology and Cytology STAT 02/27/2024 7:51 AM CDT Scheduled Orders Name Type Priority Associated Diagnoses Orde r Schedule Nerve Biopsy (Reference Laboratory) Pathology and Cytology Routine Release Upon Orderin g for 1 Occurrences starting 02/27/2024 documented as of this encounter Procedures Procedure Name Priority Date/Time Associated Diagnosis Comments BIOPSY, MUSCLE 02/27/2024 7:25 AM CDT Peripheral polyneuropathy Special Needs -asa: hold 5 days prior HCG QUALITATIVE URINE STAT 02/27/2024 6:05 AM CDT documented in this encounter Results * HCG qualitative urine - Pre-Op (02/27/2024 6:05 AM CDT) hCG Urine Qualitative Negative Negative [facility] 02/27/2024 6:14 AM CDT LABORATORY Comment:This test is for scr eening purposes. Results should be interpreted along with the clinical picture. Confirmation testing is available if warranted by ordering [id number], HCG Quantitative . Urine MID-STREAM URINE SPECIMEN / Unknown Non-blood Collection / Unknown 02/27/2024 6:05 AM CDT 02/27/2024 6:07 AM CDT Florentino Hardy MD LAB - URINE ORDER [facility] [address] 1[address] floor, [address] [place] [address], [facility] [phone] documented in this encounter Visit Diagnoses Diagnosis Neuropathy- Primary Mononeuritis of unspecified site Peripheral polyneuropathy Unspecified hereditary and idiopathic peripheral neuropathy documented in this encounter Administered Medications Inactive Administered Medications - up to 3 most recent administrations Medication Order MAR Action Action Date Dose Rate Site BUPivacaine 0.25 % - EPINEPHrine 1:200,000 injection PRN, Starting on Mon02/27/24 at 0754, Intra-procedure $Given 02/27/2024 7:54 AM CDT 10 mLs Operative Site/Surgical Site lidocaine 1 % 20 mL, sodium bicarbonate 4 mL OR mixture PRN, Starting on Mon02/27/24 at 0740, Intra-procedure $Given 02/27/2024 7:40 AM CDT 9 mLs Operative Site/Surgical Site documented in this encounter Active and Recently Administered Medications Times are shown in CDT. PRN Medication Order 02/25/2024 02/26/2024 02/27/2024 BUPivacaine 0.25 % - EPINEPHrine 1:200,000 injection PRN, Starting on Mon02/27/24 at 0754, Intra-procedure 0754 ($Given - Provi rani: Remi Song MD) lidocaine 1 % 20 mL, sodium bicarbonate 4 mL OR mixture PRN, Starting on Mon02/27/24 at 0740, Intra-procedure 0740 ($Given - Provi rani: Remi Song MD) documented in this encounter Care Teams Electrical Logging Engineer Relationship Specialty Start Date End Date Jaleel Christian MD PCP - General Family Practice 10/21/19 documented as of this encounter
--- OUTSIDE RECORDS SUMMARY | 2024-03-04 13:08 | XMS_ITS | Encounter Summary ---
Author Organization [facility] Address [address] [place] [address]. [place] [address] Care Team Providers Care Frozen Food Department Manager Name Role Phone Jaleel Christian MD Primary Care Provider Encounter Details Date Type Department Care Team (Late st Contact Info) Description 02/05/2024 Medical Correspondence [facility] Info Mgmt [facility] [address] [place] [address] Scan, Non-Provider Social History Tobacco Use [...] on filedocumented in this encounter Care Teams Frozen Food Department Manager Relationship Specialty Start Date End Date Jaleel Christian MD PCP - General Family Practice 10/21/19 documented as of this encounter
--- OUTSIDE RECORDS SUMMARY | 2024-03-04 13:08 | XMS_ITS | Encounter Summary ---
Author Organization [facility] Address [address] [place] [address]. [place] [address] Care Team Providers Care Delinquent Tax Collection Assistant Name Role Phone Jaleel Christian MD Primary Care Provider [phone] Reason for Visit * Reason Onset Date Comments Referral 02/07/2024 Encounter Details Date Type Department Care Team (Late st Contact Info) Description 02/07/[address] [facility] [place] [id number] [facility] [address] [address] Nurse, [facility] Referral Social History Tobacco Use Types Packs/Day [...] scheduled video visit. * Telephone Encounter - SdMehreen - 02/07/2024 10:49 AM CDT Left voicemail for patient to call back to schedule appointment(s), provided telephone number for patient to call back to schedule. NEW VASCULAR PATIENT VIDEO consult with Dr. Song (video consult ok per scheduling guidelines for this diagnosis/referral) Please schedule this at next available Appt note: Ref by Heidi Casarez PA-C ([facility]) for muscle biopsy. * Telephone Encounter - Linda Herrera RN - 02/07/2024 10:04 AM CDT Referral received via Fax on 02/06/24. Pt referred to [facility] by Heidi Casarez PA-C ([facility]) for muscle biopsy. Routing to scheduling to coordinate the following: NEW VASCULAR PATIENT VIDEO consult with Dr. Song (video consult ok per scheduling guidelines for this diagnosis/referral) Please schedule this at next available Appt note: Ref by Heidi Casarez PA-C ([facility]) for muscle biopsy. MANAN JordanN, RN, [facility] V[facility] documented in this encounter Plan of Treatment Not on file documented as of this encounter Visit Diagnoses Not on filedocumented in this encounter Care Teams Delinquent Tax Collection Assistant Relationship Specialty Start Date End Date Jaleel Christian MD PCP - General Family Practice 10/21/19 documented as of this encounter
--- OUTSIDE RECORDS SUMMARY | 2024-03-04 13:08 | XMS_ITS | Encounter Summary ---
Author Organization [facility] Address [address] [address] Phone Care Team Providers Care Rehabilitation Technician Name Role Phone Jaleel Christian MD Primary [...] on filedocumented in this encounter Care Teams Rehabilitation Technician Relationship Specialty Start Date End Date Jaleel Christian MD PCP - General Family Medicine 12/31/23 documented as of this encounter
--- OUTSIDE RECORDS SUMMARY | 2024-03-04 13:08 | XMS_ITS | Encounter Summary ---
Author Organization [facility] Address [address] [place] [address]. [place] [address] Care Team Providers Care Machine Set Up Operator Paper Goods Name Role Phone Jaleel Christian MD Primary Care Provider [phone] Encounter Details Date Type Department Care Team (Latest Contact Info) Description 02/27/2024 Travel Social History Tobacco Use Types Packs/Day [...] Plan General Surgery Health Exam Escalation No Soraya, Audra MYC ECC SURG HEALTH NOT YES - [...] documented as of this encounter Care Teams Machine Set Up Operator Paper Goods Relationship Specialty Start Date End Date Jaleel Christian MD PCP - General Family Practice 10/21/19 documented as of this encounter
--- OUTSIDE RECORDS SUMMARY | 2024-03-04 13:08 | XMS_ITS | Encounter Summary ---
Author Organization [facility] Address [address] [place] [address] Care Team Providers Care Marshmallow Machine Worker Name Role Phone Jaleel Christian MD Primary Care Provider [phone] Reason for Visit * Auth/Cert Specialty Diagnoses / Procedures Referred By Yovani caba Referred To Contact Surgery Diagnoses Peripheral polyneuropathy Peripheral polyneuropathy [G62.9] Procedures PA BIOPSY MUSCLE, SUPERFICIAL PA BIOPSY MUSCLE, DEEP PA BIOPSY MUSCLE/SOFT TISSUE, PERCUTANEOUS NEEDLE PA LIGATION OR BIOPSY TEMPORAL ARTERY LEFT SURAL NERVE BIOPSY Sh Periop Services [address] [place] [address] Referral ID Status Reason Start Date Expiration Date Visits Re quested Visits Authorized [id number] 1 1 Encounter Details Date Type Department Care Team (Latest Contact Info) Description 02/27/2024 5:36 AM CDT - 02/27/2024 9:25 AM CDT Hospital Encounter [facility] PreOP/Phase II [address] [place] [address] Remi Song MD [address] [place] [address] Neuropathy (Primary Dx) Discharge Disposition: Home or Self Care Social History Tobacco Use Types [...] your procedure call Dr Remi Song at [phone] documented in this encounter Medications at Time [...] her legs. She has been evaluated at [facility] They have recommended a sural [...] pathology lab by myself for transfer to [facility] for further evaluation. Patient tolerated procedure well. EBL: Less than 1 mL COMPLICATIONS: None OPERATIVE FINDINGS: Clinically unremarkable nerve but no sensation with transection. Patient will follow-up in several weeks once the pathology is available with [facility] Remi Song MD documented in [...] testing is available if warranted by ordering [id number], HCG Quantitative . Urine MID-STREAM URINE SPECIMEN / Unknown Non-blood Collection / Unknown 02/27/2024 6:05 AM CDT 02/27/2024 6:07 AM CDT Florentino Hardy MD LAB - URINE ORDER [facility] [address] 1[address] floor, [address] [place] [address], [facility] [phone] documented in this encounter Visit Diagnoses Diagnosis Neuropathy- Primary Mononeuritis of unspecified site documented in this encounter Administered Medications Inactive [...] 4 mL OR mixture PRN, Starting on Tu02/27/24 at 0740, Intra-procedure 0740 ($Given - Provi rani: Remi Song MD) documented in this encounter Care Teams Marshmallow Machine Worker Relationship Specialty Start Date End Date Jaleel Christian MD PCP - General Family Practice 10/21/19 documented as of this encounter
--- OUTSIDE RECORDS SUMMARY | 2024-03-04 13:08 | XMS_ITS | Encounter Summary ---
Author Organization [facility] Address [address] [place] [address]. [place] [address] Care Team Providers Care Retail Client Solutions Consultant Name Role Phone Jaleel Christian MD Primary Care Provider [phone] Reason for Visit * Reason Onset Date Comments Surgery Scheduling 02/19/2024 Encounter Details Date Type Department Care Team (Late st Contact Info) Description 02/19/2024 Telephone [facility] [place] [address] [place] [phone] Remi Song MD [address] [place], [place] [id number] Surgery Scheduling Social History Tobacco Use Types Packs/Day Years [...] encounter Miscellaneous Notes * Telephone Encounter - Kandice Taylor Abdi - 02/19/2024 3:11 PM CDT Reviewed surgery information with patient, patient will coordinate a pre-op instructed to hold ASA 5 days prior. Patient inquired on if she should take off work on 02/28/24 reviewed with RN who will update patient VIA MyChart. * Telephone Encounter - Kandice Taylor - 02/19/2024 1:50 PM CDT CASE RECEIVED ON 02/19/24 FOR:LEFT SURAL NERVE BIOPSY (PRONE POSITION) Spoke to patient states there are no dates/times to avoid at this time. documented in this encounter Plan of Treatment Not on file documented as of this encounter Visit Diagnoses Not on filedocumented in this encounter Care Teams Retail Client Solutions Consultant Relationship Specialty Start Date End Date Jaleel Christian MD PCP - General Family Practice 10/21/19 documented as of this encounter
--- OUTSIDE RECORDS SUMMARY | 2024-03-04 13:08 | XMS_ITS | Encounter Summary ---
Author Organization [facility] Address [address] [place] [address]. [place] [address] Care Team Providers Care Provider Relations Coordinator Name Role Phone Jaleel Christian MD Primary Care Provider [phone] Reason for Visit * Reason Comments Video Visit Encounter Details Date Type Department Care Team (Latest Contact Info) Description 02/15/2024 4:00 PM CDT Virtual Visit [facility] [place] [address] [place] [address] Remi Song MD [address] [place] [address] Myositis of left thigh, unspecified myositis type (Primary Dx); Peripheral polyneuropathy Social History Tobacco Use Types Packs/Day Years [...] on file documented as of this encounter Nursing Notes * Linda Herrera RN - 02/15/2024 4:00 PM CDT 02/16/24 @ 8:30am. Contacted [facility] and spoke with Julieta. Requested a new referral order be faxedspecifically stating if patient needs a sural nerve biopsy vs a muscle biopsy. Julieta stated she would clarify with referring provider and fax order once confirmed. CALEB Jordan, RN, [facility] * Linda Herrera RN - 02/15/2024 4:00 PM CDT Received fax on 02/16/24 at 2:23pm stating referral is specifically for a small fiber nerve biopsy to assess for small fiber neuropathy. Per Dr. Song, surgery order form obtained for left sural nerve biopsy via prone position. Hold ASA 5 days prior. documented in this encounter Plan of Treatment Not on file documented as of this encounter Visit Diagnoses Diagnosis Myositis of left thigh, unspecified myositis type- Primary Peripheral polyneuropathy Unspecified hereditary and idiopathic peripheral neuropathy documented in this encounter Care Teams Provider Relations Coordinator Relationship Specialty Start Date End Date Jaleel Christian MD PCP - General Family Practice 10/21/19 documented as of this encounter
--- OUTSIDE RECORDS SUMMARY | 2024-03-04 13:08 | XMS_ITS | Encounter Summary ---
Author Organization [facility] Address [address] [place] [address]. [place] [address] Care Team Providers Care Dry Room Operator Name Role Phone Jaleel Christian MD Primary Care Provider [phone] Ricardo Ahn MD Unavailable [phone] Ruchi Blackman PA-C Unavailable [phone] Encounter Details Date Type Department Care Team (Late st Contact Info) Description 02/18/2020 [facility] [id number] [place] [address] [address] [place] [address] Sarah Morrow APRN CNP NO [...] on filedocumented in this encounter Care Teams Dry Room Operator Relationship Specialty Start Date End Date Jaleel Christian MD PCP - General Family Practice 10/21/19 Ricardo Ahn MD [address] [facility] [address] [place] [address] Assigned Heart and Vascular Provider 04/17/20 09/04/21 Ruchi Blackman PA-C [address] [place] [address] Assigned Neuroscience Provider 09/09/20 09/19/20 documented as of this encounter
--- OUTSIDE RECORDS SUMMARY | 2024-03-04 13:08 | XMS_ITS | Encounter Summary ---
Author Organization [facility] Address [address] [place] [address] Care Team Providers Care Cloud Physicist Name Role Phone Jaleel Christian MD Primary Care Provider [phone] Reason for Visit * Auth/Cert Specialty Diagnoses / Procedures Referred By Yovani caba Referred To Contact Surgery Diagnoses Peripheral polyneuropathy Peripheral polyneuropathy [G62.9] Procedures LA BIOPSY MUSCLE, SUPERFICIAL LA BIOPSY MUSCLE, DEEP LA BIOPSY MUSCLE/SOFT TISSUE, PERCUTANEOUS NEEDLE LA LIGATION OR BIOPSY TEMPORAL ARTERY LEFT SURAL NERVE BIOPSY Periop Services [address] [place] [address] Referral ID Status Reason Start Date Expiration Date Visits Re quested Visits Authorized [id number] 1 1 Encounter Details Date Type Department Care Team (Late st Contact Info) Description 02/27/2024 7:20 AM CDT Anesthesia Event [facility] PeriOP Services [address] [place] [address] Florentino Hardy MD [facility] [address] [id number] Maria Fernanda Fajardo, CEM DISTRICT DIRECTOR [address] [id number] Anesthesia Record Procedure Summary Procedure Name Responsible Anesthesiologist Anesthesia Start Time Anesthesia Stop Time LEFT SURAL NERVE BIOPSY (Left: Update) Florentino Hardy MD 02/27/24 0720 02/27/24 0814 Events Date Time Event Comment 02/27/2024 0637 DISTRICT DIRECTOR Ready for Procedure 0712 0720 An Start Anesthesia Star t is defined as when the anesthesia provider assumed care, began anesthesia prep, remained continuously present with the patient, and excludes all time for performing the pre-anesthesia evaluation. The Pre-Anesthesia Evaluation was completed before Anesthesia Start. 0725 An Start Data 0726 AN REASSESS I attest that I have identified and re-evaluated the patient immediately before the induction of anesthesia and I am satisfied that the anesthetic plan is suitable for the patient's condition and procedure. The first vital signs recorded are pre- induction. Shannan Sherwood APRN DISTRICT DIRECTOR 0726 Quick Note EtCO2 and RR va lues may be incorrect at times due to limitations in monitoring with open O2 device and spontaneously breathing patient. EtCO2 waveform and respirations monitored throughout case by DISTRICT DIRECTOR. 0730 Anesthesia Ready for Procedu re 0731 AN INCISION 0740 AN INCISION 0807 an stop data 0814 An Stop Electronically signed by Shannan Sherwood APRN DISTRICT DIRECTOR on February 27, 2024 8:14 AM Meds Name Total dexamethasone (DECADRON) 4 mg/mL 4 mg fentaNYL 50 mcg/mL 50 mcg midazolam 1 mg/mL 2 mg ondansetron 2 mg/mL 4 mg propofol (DIPRIVAN) 10 mg/mL 20 mg propofol drip mcg/kg/min 272.88 mg LR 400 mL * Agents Name O2 N2O Air Exp Sevoflurane Exp Isoflurane Exp Desflurane O2 Delivery Device Ins Sevoflurane Ins Isoflurane Ins Desflurane O2 Auxiliary * Blood No blood administrations on file. Lines, Drains, and Airways Type Details Placement Removal Incision/Surgical Site 12/13/19; 1022; R ight; Chest 12/13/19 1022 by Thelma Youngblood RN Incision/Surgical Site 12/13/19; 1022; R ight; Groin 12/13/19 1022 by Thelma Youngblood RN Incision/Surgical Site 02/27/24; 0754; L eft, Lower; Leg; Left Lower Posterior leg X 1 02/27/24 0754 by Jaylan Valentin RN Peripheral IV 02/27/24; 0639; 22 G ; Left; Hand; Alcohol 02/27/24 0639 by Darcie Davis RN 02/27/24 0854 by Marleni Olmos RN documented in this encounter Social History Tobacco [...] on file documented as of this encounter OR Notes * Anesthesia Postprocedure Evaluation - Florentino Hardy MD - 02/27/2024 9:03 AM CDT Patient: Andrea Webster Procedure: Procedure(s): LEFT SURAL NERVE BIOPSY Anesthesia Type: MAC Note: Disposition: Outpatient Postop Pain Control: Uneventful Sign Out: Well controlled pain PONV: Neuro/Psych: Uneventful Sign Out: Acceptable/Baseline neuro status Airway/Respiratory: Uneventful Sign Out: Acceptable/Baseline resp. status CV/Hemodynamics: Uneventful Sign Out: Acceptable CV status Other NRE: NONE DID A NON-ROUTINE EVENT OCCUR? No Last vitals: Vitals Value Taken Time BP 98/63 02/27/24 0845 Temp 36.1 ??C (97 ??F) 02/27/24 0845 Pulse 58 02/27/24 0845 Resp 20 02/27/24 0845 SpO2 100 % 02/27/24 0845 Electronically Signed By: Florentino Hardy MD February 27, 2024 9:03 AM * Anesthesia Preprocedure Evaluation - Florentino Hardy MD - 02/26/2024 7:41 PM CDT Anesthesia Pre-Procedure Evaluation Patient: Andrea Webster : 1985 Procedure : Procedure(s): LEFT SURAL NERVE BIOPSY Past Medical History: Diagnosis Date Acute CVA (cerebrovascular accident) (H) 10/18/2019 ischemic vs migraine sequelae R occipital lobe Anxiety Depression Migraine PFO (patent foramen ovale) 10/21/2019 PFO and ASD 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 not ivc sinus venosus asd) windsock aneurysm Pyelonephritis Past Surgical History: Procedure Laterality Date ENT SURGERY T&A RV SERVICE TECHNICIAN SURGERY C section x1 ORTHOPEDIC SURGERY left knee meniscus repair REPAIR PATENT FORAMEN OVALE N/A 12/13/2019 separate closure of pfo and asd (by ivc) minithoracotomy dr wright SOFT TISSUE SURGERY cyst excision right ovary Allergies Allergen Reactions Ciprofloxacin Swelling Sulfa Antibiotics Anaphylaxis Buspirone Social History Tobacco Use Smoking status: Some Days Types: Cigarettes Smokeless tobacco: Never Tobacco comments: a couple cigarettes daily Substance Use Topics Alcohol use: Not Currently Wt Readings from Last 1 Encounters: 12/17/19 70 kg (154 lb 5.2 oz) Anesthesia Evaluation ROS/MED HX ENT/Pulmonary: (+) tobacco use, Current use, (-) asthma Neurologic: (+) peripheral neuropathy, - undiagnosed poly. migraines, CVA, without deficits, TIA, Cardiovascular: (+) - - - - - congenital heart disease PFO. Closed. Previous cardiac testing Echo: Date: 2019 Results: Interpretation Summary There is a atrial septum closure device present. No visible residual shunt by color, negative bubble study with and without Valsalva. Otherwise normal adult cardiac echo. __ Left Ventricle The left ventricle is normal in size. There is normal left ventricular wall thickness. The left ventricular ejection fraction is normal. The visual ejection fraction is estimated at 55-60%. Diastolic Doppler findings (E/E' ratio and/or other parameters) suggest left ventricular filling pressures are normal. No regional wall motion abnormalities noted. Right Ventricle The right ventricle is normal in structure, function and size. Atria Normal left atrial size. Right atrial size is normal. Closure by device, secundum atrial septal defect. A contrast injection (Bubble Study) was performed that was negative for flow across the interatrial septum. A Valsalva maneuver was performed. Mitral Valve The mitral valve is normal in structure and function. Tricuspid Valve The tricuspid valve is normal in structure and function. Aortic Valve The aortic valve is normal in structure and function. Pulmonic Valve Normal pulmonic valve. Vessels Normal size aorta. Pericardium There is no pericardial effusion. Rhythm Sinus rhythm was noted. Stress Test: Date: Results: ECG Reviewed: Date: Results: Cath: Date: Results: (-) hypertension, CAD and dyslipidemia METS/Exercise Tolerance: Hematologic: Musculoskeletal: GI/Hepatic: Renal/Genitourinary: Comment: H/O pyelonephritis (-) renal disease Endo: Psychiatric/Substance Use: (+) psychiatric history anxiety and depression Infectious Disease: Malignancy: (-) malignancy Other: Physical Exam Airway Mallampati: II TM distance: > 3 FB Neck ROM: full Mouth opening: > 3 cm Respiratory Devices and Support Dental (+) Edentulous Cardiovascular cardiovascular exam normal Pulmonary pulmonary exam normal OUTSIDE LABS: CBC: Lab Results Component Value Date WBC 7.2 12/16/2019 WBC 8.2 12/15/2019 HGB 11.7 12/16/2019 HGB 11.3 (L) 12/15/2019 HCT 35.0 12/16/2019 HCT 33.8 (L) 12/15/2019 PLT 204 12/17/2019 PLT 179 12/16/2019 BMP: Lab Results Component Value Date NA 137 12/16/2019 NA 138 12/14/2019 POTASSIUM 3.7 12/17/2019 POTASSIUM 3.6 12/16/2019 CHLORIDE 107 12/16/2019 CHLORIDE 109 12/14/2019 CO2 26 12/16/2019 CO2 25 12/14/2019 BUN 8 12/16/2019 BUN 6 (L) 12/14/2019 CR 0.70 12/16/2019 CR 0.68 12/14/2019 GLC 87 12/16/2019 GLC 96 12/14/2019 COAGS: Lab Results Component Value Date PTT 28 12/13/2019 INR 1.51 (H) 12/13/2019 FIBR 195 (L) 12/13/2019 POC: Lab Results Component Value Date BGM 95 12/17/2019 HCG Negative 12/13/2019 HCGS Negative 10/18/2019 HEPATIC: Lab Results Component Value Date ALBUMIN 3.0 (L) 12/14/2019 PROTTOTAL 5.3 (L) 12/14/2019 ALT 18 12/14/2019 AST 38 12/14/2019 ALKPHOS 52 12/14/2019 BILITOTAL 1.3 12/14/2019 OTHER: Lab Results Component Value Date PH 7.32 (L) 12/13/2019 LACT 0.9 12/13/2019 A1C 5.2 12/11/2019 SHARONA 8.8 12/16/2019 PHOS 3.6 12/14/2019 MAG 2.4 (H) 12/14/2019 TSH 1.48 10/18/2019 CRP <2.9 10/19/2019 SED 4 10/19/2019 Anesthesia Plan ASA Status: 2 NPO Status: NPO Appropriate Anesthesia Type: MAC. - Reason for MAC: straight local not clinically adequate Induction: Intravenous, Propofol. Consents Anesthesia Plan(s) and associated risks, benefits, and realistic alternatives discussed. Questions answered and patient/collections representative(s) expressed understanding. - Discussed: - Discussed with: Patient - Extended Intubation/Ventilatory Support Discussed: No. - Patient is DNR/DNI Status: No Use of blood products discussed: No . Postoperative Care Pain management: IV analgesics, Multi-modal analgesia. PONV prophylaxis: Ondansetron (or other 5HT-3), Dexamethasone or Solumedrol Comments: Other Comments: Patient is advised to quit smoking and to seek primary care physician help if needed. Advised of anesthesia risks associated with cigarette use. Florentino Hardy MD I have reviewed the pertinent notes and labs in the chart from the past 30 days and (re)examined the patient. Any updates or changes from those notes are reflected in this note. documented in this encounter Miscellaneous Notes * Anesthesia Care Transfer Note - SpalShannan mera APRN CRNA - 02/27/2024 8:14 AM CDT Patient: Andrea Webster Procedure: Procedure(s): LEFT SURAL NERVE BIOPSY Diagnosis: Peripheral polyneuropathy [G62.9] Diagnosis Additional Information: No value filed. Anesthesia Type: MAC Note: Oropharynx: oropharynx clear of all foreign objects and spontaneously breathing Level of Consciousness: awake Oxygen Supplementation: room air Independent Airway: airway patency satisfactory and stable Dentition: dentition unchanged Vital Signs Stable: post-procedure vital signs reviewed and stable Report to RN Given: handoff report given Patient transferred to: PACU Handoff Report: Identifed the Patient, Identified the Reponsible Provider, Reviewed the pertinent medical history, Discussed the surgical course, Reviewed Intra-OP anesthesia mangement and issues during anesthesia, Set expectations for post-procedure period and Allowed opportunity for questions andacknowledgement of understanding Electronically Signed By: Shannan Sherwood APRN CRNA February 27, 2024 8:14 AM documented in this encounter Plan of Treatment Not on file documented as of this encounter Goals Goal Patient Goal Type Associated Problems Recent Progress Patient-Stated? Author MYC ECC SURG ENROLL Care Plan MyC ECC SURG ENROLL No Tatiana Mcginnis Care pathway for general surgery Care Plan Care pathway for general surgery No Audra Lira [facility] ECC SURG DAY 10 MED Care Plan Care pathway for general surgery No Audra Lira [facility] ECC GENERAL SURGERY Care Plan General Surgery Health Exam Escalation No Audra Lira [facility] ECC SURG HEALTH NOT YES - [address] [facility] ECC SURG HEALTH NOT YES -5 No Audra Lira documented as of this encounter Visit Diagnoses Not on filedocumented in this encounter Administered Medications Inactive Administered Medications - up to 3 most recent administrations Medication Order MAR Action Action Date Dose Rate Site dexAMETHasone (DECADRON) injection Intravenous, PRN, Administer over 1 Minutes, Starting on Mon02/27/24 at 0730, Anesthesia Intra-op $Given 02/27/2024 7:30 AM CDT 4 mg fentaNYL (PF) (SUBLIMAZE) injection Intravenous, PRN, Administer over 3-5 Minutes, Starting on Mon02/27/24 at 0740, Anesthesia Intra-op $Given 02/27/2024 7:40 AM CDT 50 mcg lactated ringers infusion Intravenous, CONTINUOUS PRN, Anesthesia Intra-op, Starting on Mon02/27/24 at 0720, Until Mon02/27/24 at 0814 $New Bag 02/27/2024 7:20 AM CDT midazolam (VERSED) injection Intravenous, Administer over 2 Minutes, PRN, Starting on Mon02/27/24 at 0724, Anesthesia Intra-op $Given 02/27/2024 7:24 AM CDT 2 mg ondansetron (ZOFRAN) injection Intravenous, PRN, Administer over 2-5 Minutes, Starting on Mon02/27/24 at 0730, Anesthesia Intra-op $Given 02/27/2024 7:30 AM CDT 4 mg propofol (DIPRIVAN) infusion Intravenous, CONTINUOUS PRN, Starting on Mon02/27/24 at 0725, Anesthesia Intra-op Rate/Dose Change 02/27/2024 7:49 AM CDT 50 mcg/kg/min 22.74 mL/hr Rate/Dose Change 02/27/2024 7:40 AM CDT 100 mcg/kg/min 45. 48 mL/hr Rate/Dose Change 02/27/2024 7:38 AM CDT 125 mcg/kg/min 56. 85 mL/hr propofol (DIPRIVAN) injection 10 mg/mL vial Intravenous, PRN, Starting on Mon02/27/24 at 0728, Anesthesia Intra-op $Given 02/27/2024 7:28 AM CDT 20 mg documented in this encounter Additional Health Concerns Active Problems Noted Date Diagnosed Date MyC ECC SURG ENROLL 02/20/2024 Care pathway for general surgery 02/20/2024 General Surgery Health Exam Escalation MYC ECC SURG HEALTH NOT YES -5 02/20/2024 documented as of this encounter Care Teams Cloud Physicist Relationship Specialty Start Date End Date Jaleel Christian MD PCP - General Family Practice 10/21/19 documented as of this encounter
--- OUTSIDE RECORDS SUMMARY | 2024-03-04 13:08 | XMS_ITS | Encounter Summary ---
Author Organization [facility] Address [address] [place] [address] Care Team Providers Care Electronic Engineering Draftsperson Name Role Phone Jaleel Christian MD Primary Care Provider [phone] Ricardo Ahn MD Unavailable [phone] Ruchi Blackman PA-C Unavailable [phone] Encounter Details Date Type Department Care Team (Late st Contact Info) Description 12/10/2019 Orders Only [facility] [address] [place] [address] Jose Manuel Strickland MD [address] [place] [address] Social History Tobacco Use Types Packs/Day Years [...] on filedocumented in this encounter Care Teams Electronic Engineering Draftsperson Relationship Specialty Start Date End Date Jaleel Christian MD PCP - General Family Practice 10/21/19 Ricardo Ahn MD [address] [place] [phone] Assigned Heart and Vascular Provider 04/17/20 09/04/21 Ruchi Blackman PA-C [address] [place], [place] [address] Assigned Neuroscience Provider 09/09/20 09/19/20 documented as of this encounter
--- OUTSIDE RECORDS SUMMARY | 2024-03-04 13:08 | XMS_ITS | Clinical Summary ---
Author Organization [facility] Address [address] [place] [address] Care Team Providers Care Screen Examiner Name Role Phone Jaleel Christian MD Primary Care Provider [phone] Allergies Active Allergy Reactions Criticality Noted Date [...] Type Department Care Team Description 03/04/2024 Telephone [facility] [place] [address] [place] [phone] Remi Song MD 02/27/2024 7:30 AM CDT - 02/27/2024 8:[address] [facility] PeriOP Services [address] [place] [phone] Remi Song MD LEFT SURAL NERVE BIOPSY 02/27/2024 7:20 AM CDT [facility] [address] [place] [phone] Florentino Hardy MD Dennen, Kristina Nguyen, APRN CRNA 02/27/2024 5:36 AM CDT - 02/27/2024 9:25 AM CDT Hospital Encounter [facility] PreOP/Phase II [address] [place] [phone] Remi Song MD Neuropathy (Primary Dx) Discharge Disposition: Home or Self Care 02/27/2024 Travel 02/26/2024 Telephone [facility] [place] [address] [place] [phone] Remi Song MD 02/19/2024 Telephone [facility] [address] [place] [phone] Remi Song MD Surgery Scheduling 02/19/2024 MyC Medical Advice [facility] [address] [place] [phone] Linda Herrera RN 02/16/2024 Medical Correspondence [facility] [address] [place] [phone] Scan, Non-Provider 02/15/2024 4:00 PM CDT Virtual Visit [facility] [address] [place] [phone] Remi Song MD Myositis of left thigh, unspecified myositis type (Primary Dx); Peripheral polyneuropathy 02/07/2024 Telephone [facility] [address] [place] [phone] Nurse, [facility] Referral 02/05/2024 Medical Correspondence [facility] [address] [place] [phone] Scan, Non-Provider from Last 3 Months Family History Medical [...] 02/27/2024 6:05 AM CDT Plan of Treatment Health Maintenance Due Date Last Done Comments ANNUAL REVIEW OF HM ORDERS 1985 MAMMO SCREENING 1985 NICOTINE/TOBACCO CESSATION COUNSELING Q 1 YR 1985 YEARLY PREVENTIVE VISIT 1985 Pneumococcal Vaccine: Pediatrics (0 to 5 Years) and At-Risk Patients (6 to 64 Years) (1 of 2 - PCV) 02/05/1990 HIV SCREENING 02/05/1999 HEPATITIS C SCREENING 02/05/2002 PAP 05/12/2020 05/12/2017, 05/12/2017 GLUCOSE 12/16/2022 12/17/2019, 11/25, 12/16/2019, Additional history exists PHQ-2 (once per calendar year) 2023 COVID-19 Vaccine (3 - season) 2024 06/23/2021, 05/28/2021 INFLUENZA VACCINE (#1) 2024 9, 02/28/2016, 04/01/2011, [...] on patient's age to complete this topic Goals Goal Patient Goal Type Associated Problems [...] testing is available if warranted by ordering PNV000, HCG Quantitative . Urine MID-STREAM URINE SPECIMEN / Unknown Non-blood Collection / Unknown 02/27/2024 6:05 AM CDT 02/27/2024 6:07 AM CDT Florentino Hardy MD LAB - URINE ORDER [facility] [address], [address] [place] [address], [place] [phone] * Glucose by meter (12/17/2019 1:55 AM [...] 121 <200 mg/dL 10/19/2019 7:39 AM CDT [facility] Triglycerides 47 <150 mg/dL 10/19/2019 7:39 AM CDT [facility] HDL Cholesterol 29(L) >49 mg/dL 0 7:42 AM CDT [facility] LDL Cholesterol Calculated 83 <100 mg/dL 10/19/2019 7:42 AM CDT [facility] Comment:Desirable: <100 mg/d l Non HDL Cholesterol 92 <130 mg/dL 10/19/2019 7:42 AM CDT [facility] Blood specimen (specimen) 10/19/2019 6:59 AM CDT 10/19/2019 7:00 AM CDT Dominguez Yuan MD LAB - BLOOD ORDERABL ES [facility] [address] [place] [address], [facility] [phone] from Last 3 Months or Most Recently Relevant to Health Maintenance Additional Health Concerns Active Problems Noted Date Diagnosed Date MyC ECC SURG ENROLL 02/20/2024 Care pathway for general surgery 02/20/2024 General Surgery Health Exam Escalation MYC ECC SURG HEALTH NOT YES -5 02/20/2024 Advance Directives For more information, please contact: [phone] * Full Code (Latest Code Status on [...] with tai nt/legal decision maker Care Teams Screen Examiner Relationship Specialty Start Date End Date Jaleel Christian MD PCP - General Family Practice 10/21/19
--- OUTSIDE RECORDS SUMMARY | 2024-03-04 13:08 | XMS_ITS | Encounter Summary ---
Author Organization [facility] Address [address] [place] [address] Care Team Providers Care Welder Gas Name Role Phone Jaleel Christian MD Primary Care Provider [phone] Ricardo Ahn MD Unavailable [phone] Ruchi Blackman PA-C Unavailable [phone] Encounter Details Date Type Department Care Team (Late st Contact Info) Description 12/11/2019 Orders Only [facility] [address] [place] [address] Jose Manuel Strickland MD [address] [place] [address] Social History Tobacco Use Types Packs/Day Years [...] on filedocumented in this encounter Care Teams Welder Gas Relationship Specialty Start Date End Date Jaleel Christian MD PCP - General Family Practice 10/21/19 Ricardo Ahn MD [address] [place] [phone] Assigned Heart and Vascular Provider 04/17/20 09/04/21 Ruchi Blackman PA-C [address] [place], [place] [address] Assigned Neuroscience Provider 09/09/20 09/19/20 documented as of this encounter
--- OUTSIDE RECORDS SUMMARY | 2024-03-04 13:08 | XMS_ITS | Encounter Summary ---
Author Organization [facility] Address [address] [place] [address]. [place] [address] Care Team Providers Care Data Entry Name Role Phone Jaleel Christian MD Primary Care Provider [phone] Ricardo Ahn MD Unavailable [phone] Ruchi Blackman PA-C Unavailable [phone] Encounter Details Date Type Department Care Team (Late st Contact Info) Description 03/11/2020 [facility] Medical Advice [facility] [address] [facility] [address] [place] [address] Ricardo Ahn MD [address] [facility] [address] [place] [address] Social History Tobacco Use Types [...] on filedocumented in this encounter Care Teams Data Entry Relationship Specialty Start Date End Date Jaleel Christian MD PCP - General Family Practice 10/21/19 Ricardo Ahn MD [address] [place] [phone] Assigned Heart and Vascular Provider 04/17/20 09/04/21 Ruchi Blackman PA-C [address] [place] [address] Assigned Neuroscience Provider 09/09/20 09/19/20 documented as of this encounter
--- OUTSIDE RECORDS SUMMARY | 2024-03-04 13:09 | XMS_ITS | Encounter Summary ---
Author Organization [facility] Address [address] [place] [address]. [place] [address] Care Team Providers Care Devulcanizer Charger Name Role Phone Jaleel Christian MD Primary Care Provider [phone] Ricardo Ahn MD Unavailable [phone] Ruchi Blackman PA-C Unavailable [phone] Encounter Details Date Type Department Care Team (Late st Contact Info) Description 11/14/2019 [facility] Pool [address] [facility] [address] [place] [phone] Wesly Baez Social [...] on filedocumented in this encounter Care Teams Devulcanizer Charger Relationship Specialty Start Date End Date Jaleel Christian MD PCP - General Family Practice 10/21/19 Ricardo Ahn MD [address] [facility] [address] [place] [phone] Assigned Heart and Vascular Provider 04/17/20 09/04/21 Ruchi Blackman PA-C [address] [place] [address] Assigned Neuroscience Provider 09/09/20 09/19/20 documented as of this encounter
--- OUTSIDE RECORDS SUMMARY | 2024-03-04 13:09 | XMS_ITS | Encounter Summary ---
Author Organization [facility] Address [address] [place] [address] Care Team Providers Care Hot Plate Plywood Press Feeder Name Role Phone Jaleel Christian MD Primary Care Provider Ricardo Ahn MD Unavailable [phone] Ruchi Blackman PA-C Unavailable [phone] Encounter Details Date Type Department Care Team (Late st Contact Info) Description 11/22/2019 Telephone [facility] [address] [facility] [address] [place] [address] Shine Vasquez MD [address] [place] [address] Social History Tobacco Use Types [...] on filedocumented in this encounter Care Teams Hot Plate Plywood Press Feeder Relationship Specialty Start Date End Date Jaleel Christian MD PCP - General Family Practice 10/21/19 Ricardo Ahn MD [address] [facility] [address] [place] [phone] Assigned Heart and Vascular Provider 04/17/20 09/04/21 Ruchi Blackman PA-C [address] [place] [address] Assigned Neuroscience Provider 09/09/20 09/19/20 documented as of this encounter
--- OUTSIDE RECORDS SUMMARY | 2024-03-04 13:09 | XMS_ITS | Encounter Summary ---
Author Organization [facility] Address [address] [place] [address] Care Team Providers Care Unit Educator Name Role Phone Jaleel Christian MD Primary Care Provider [phone] Ricardo Ahn MD Unavailable [phone] Ruchi Blackman PA-C Unavailable [phone] Reason for Referral * Diagnostic Imaging XR (Routine) - Closed Specialty Diagnoses / Procedures Referred By Contjemal t Referred To Contact Radiology. Diagnoses PFO (patent foramen ovale) Procedures XR Chest 2 Views Jose Manuel Strickland MD [address] [place] [id number] [address] [place] [address] Referral ID Status Reason Start Date Expiration Date Visits Re quested Visits Authorized [id number] Closed 12/10/2019 12/09/2020 1 1 Encounter Details Date Type Department Care Team (Late st Contact Info) Description 12/10/2019 Orders Only [facility] STANDARD [address] [place] [phone] Jose Manuel Strickland MD [address] [place] [phone] PFO (patent foramen ovale) (Primary Dx) Social [...] Units Ordered 4 12/13/2019 5:50 AM CDT [facility] ABO A 12/11/2019 1:56 PM CDT [facility] RH(D) Neg [facility] Antibody Screen Neg 12/11/2019 1:56 PM CDT [facility] Test Valid Only At [facility] 12/11/2019 1:10 PM CDT [facility] Specimen Expires 12/14/2019 12/11/2019 1:10 PM CDT [facility] Crossmatch Red Blood Cells 12/13/2019 5:50 AM CDT [facility] Blood specimen (specimen) 12/11/2019 1:03 PM CDT 12/11/2019 1:04 PM CDT Jose Manuel Strickland MD LAB - BLOOD BA NK TEST ORDER [facility] [address], [place] [address], [facility] [phone] * A1C FUTURE anytime (12/11/2019 1:03 PM CDT) Hemoglobin A1C 5.2 0 - 5.6 % 12/11/2019 1:27 PM CDT [facility] Comment: Normal <5.7% Prediabetes 5.7-6.4% ??Diabetes 6.5% or higher - adopted from ADA consensus guidelines. Blood specimen (specimen) 12/11/2019 1:03 PM CDT 12/11/2019 1:04 PM CDT Jose Manuel Strickland MD LAB - BLOOD OR DERABLES Performing Organization Address City/[facility]/ZIP Co de Phone Number [facility] [address] [place] [address], [facility] [phone] * CBC with platelets FUTURE anytime (12/11/2019 1:03 PM CDT) WBC 6.9 4.0 - 11.0 10e9/L 12/11/2019 1:14 PM CDT [facility] RBC Count 4.63 3.8 - 5.2 10e12/L 12/11/2019 1:14 PM CDT [facility] Hemoglobin 14.3 11.7 - 15.7 g/dL 12/11/2019 1:14 PM T [facility] Hematocrit 42.1 35.0 - 47.0 % 12/11/2019 1:14 PM CDT [facility] MCV 91 78 - 100 fl 12/11/2019 1:14 PM CDT [facility] MCH 30.9 26.5 - 33.0 pg 12/11/2019 1:14 PM CDT [facility] MCHC 34.0 31.5 - 36.5 g/dL 12/11/2019 1:14 PM CDT [facility] RDW 12.7 10.0 - 15.0 % 12/11/2019 1:14 PM T [facility] Platelet Count 266 150 - 450 10e9/L 12/11/2019 1:14 PM T [facility] Blood specimen (specimen) 12/11/2019 1:03 PM CDT 12/11/2019 1:04 PM CDT Jose Manuel Strickland MD LAB - BLOOD OR DERABLES [facility] [address] [place] [address], [facility] [phone] * (ABNORMAL) Comprehensive metabolic panel FUTURE anytime (12/11/2019 1:03 PM CDT) Sodium 138 133 - 144 mmol/L 12/11/2019 1:22 PM CDT [facility] Potassium 3.2(L) 3.4 - 5.3 mmol/L 12/11/2019 1:22 PM T [facility] Chloride 109 94 - 109 mmol/L 12/11/2019 1:22 PM T [facility] Carbon Dioxide 25 20 - 32 mmol/L 12/11/2019 1:31 PM [facility] Anion Gap 4 3 - 14 mmol/L 12/11/2019 1:31 PM T [facility] Glucose 79 70 - 99 mg/dL 12/11/2019 1:31 PM [facility] Urea Nitrogen 10 7 - 30 mg/dL 12/11/2019 1:31 PM [facility] Creatinine 0.79 0.52 - 1.04 mg/dL 12/11/2019 1:31 PM [facility] GFR Estimate >90 >60 mL/min/{1. 73_m2} 12/11/2019 1:31 PM [facility] Comment: Non GFR Calc Starting 06/12/2018, serum creatinine based estimated GFR (eGFR) will be calculated using the Chronic Kidney Disease Epidemiology Collaboration (CKD-EPI) equation. GFR Estimate If Black >90 >60 mL/min/{1. 73_m2} 12/11/2019 1:31 PM [facility] Comment: GFR Calc Starting 06/12/2018, serum creatinine based estimated GFR (eGFR) will be calculated using the Chronic Kidney Disease Epidemiology Collaboration (CKD-EPI) equation. Calcium 8.7 8.5 - 10.1 mg/dL 12/11/2019 1:31 PM T [facility] Bilirubin Total 0.4 0.2 - 1.3 mg/dL 12/11/2019 1:31 PM CDT [facility] Albumin 3.9 3.4 - 5.0 g/dL 12/11/2019 1:31 PM CDT [facility] Protein Total 7.5 6.8 - 8.8 g/dL 12/11/2019 1:31 PM CDT [facility] Alkaline Phosphatase 80 40 - 150 U/L 12/11/2019 1:31 PM CDT [facility] ALT 22 0 - 50 U/L 12/11/2019 1:31 PM CDT [facility] AST 16 0 - 45 U/L 12/11/2019 1:31 PM CDT [facility] Blood specimen (specimen) 12/11/2019 1:03 PM CDT 12/11/2019 1:04 PM CDT Jose Manuel Strickland MD LAB - BLOOD OR DERABLES [facility] [address] [place] [address], [facility] [phone] * XR Chest 2 Views (12/11/2019 12:58 [...] defect documented in this encounter Care Teams Unit Educator Relationship Specialty Start Date End Date Jaleel Christian MD PCP - General Family Practice 10/21/19 Ricardo Ahn MD [address] [facility] [address] [place] [address] Assigned Heart and Vascular Provider 04/17/20 09/04/21 Ruchi Blackman PA-C [address] [place] [address] Assigned Neuroscience Provider 09/09/20 09/19/20 documented as of this encounter
--- OUTSIDE RECORDS SUMMARY | 2024-03-04 13:09 | XMS_ITS | Encounter Summary ---
Author Organization [facility] Address [address] [place] [address]. [place] [address] Care Team Providers Care Sales Consultant Insurance Name Role Phone Jaleel Christian MD Primary Care Provider [phone] Ricardo Ahn MD Unavailable [phone] Ruchi Blackman PA-C Unavailable [phone] Encounter Details Date Type Department Care Team (Late st Contact Info) Description 11/01/2019 [facility] [address] [place] [address] Lennie Lewis LPN Social History [...] on filedocumented in this encounter Care Teams Sales Consultant Insurance Relationship Specialty Start Date End Date Jaleel Christian MD PCP - General Family Practice 10/21/19 Ric[facility] [address] [facility] [address] [place] [address] Assigned Heart and Vascular Provider 04/17/20 09/04/21 Ruchi Blackman PA-C [address] [place] [address] Assigned Neuroscience Provider 09/09/20 09/19/20 documented as of this encounter
== END 2024-03-04 13:06 | disposition home or self-care (01) ==
LOC: US 13:06
PROVIDERS: PCP Family Medicine; Visit Provider Family Medicine
DX: M79.604 Pain in right leg (principal); M79.605 Pain in left leg; R20.0 Anesthesia of skin
CPT/HCPCS: 93922